=== PATIENT | male | born 1950 | race Caucasian/White ===

== ENCOUNTER 2022-06-06 18:21 | Emergency (ER) | payer MEDICARE, OTHER, SELFPAY ==
[2022-06-06] VITALS (42 sets, daily range): BP systolic 89–181; BP diastolic 44–93; PULSE 79–86; RESP 20–21; TEMP 36.7; O2SAT 98–100
[2022-06-06 18:58] LABS: Bilirubin Negative (Negative); Blood Negative (Negative); Clarity Clear (Clear); Glucose 500 mg/dL (Negative); Ketones Trace mg/dL (Negative); Leukocyte Esterase Negative (Negative); Nitrite Negative (Negative); Specific Gravity 1.025 (1.005-1.025); Urobilinogen 0.2 EU/dL (Up TO 0.2); pH 5.5 (5-8)
[2022-06-06] MEDS: MORPHine 10 MG/ML VIAL 2 MG IVP (19:22)
[2022-06-06 19:26] LABS: Abs Immature Grans 0.02 10^3/uL (0.0-0.06); Absolute Eosinophil Count 0.13 10^3/uL (0.0-0.7); Absolute Lymphocyte Count 1.29 10^3/uL (1.2-3.4); Absolute Monocyte Count 0.54 10^3/uL (0.1-0.8); Basophils % 0.9; Eosinophils % 1.1; HCT 45.9 % (40.0-50.0); HGB 14.8 g/dL (13.5-17.5); Immature Grans % 0.2; Lymphocytes % 11.1; MCH 27.5 pg (27.0-33.0); MCHC 32.2 % (32.0-36.0); MCV 85 fL (80-95); MPV 10.2 fL (8.0-11.0); Monocytes % 4.7; Platelet Count 236 10^3/uL (130-400); RBC 5.38 10^6/uL (4.36-5.78); RDW 15.4 % (11.8-14.1); RDW-SD 47.8 fL; WBC 11.59 10^3/uL (4.4-10.8)
--- NOTE | 2022-06-06 19:33 | W.ED.GENAD ---
Discharge Plan Disposition Patient Disposition: STILL A PATIENT Condition: Serious Discharge Details Clinical Impression: Aneurysm of infrarenal abdominal aorta Primary Care Provider: [facility] Provider: Wilber Flores [place] Meds and New Rx's Prescriptions: No Action metformin 1,000 mg Tablet 1,000 mg PO BID glipizide 10 mg Tablet 10 mg PO BID lisinopril 5 mg Tablet 5 mg PO DAILY aspirin 81 mg Capsule 81 mg PO DAILY gabapentin 600 mg Tablet 600 mg PO TID temazepam 30 mg Capsule 30 mg PO QHS PRN atorvastatin 20 mg Tablet 20 mg PO DAILY Jardiance 10 mg Tablet 10 mg PO DAILY Medical Decision Making This is a 72-year-old gentleman with a past medical history of diabetes, smokes 3 packs of cigarettes daily, hyperlipidemia, diabetic neuropathy, history of prostate cancer, hypertension, who unfortunately is a rather vague and poor historian presents to the ER for what he describes as left-sided back pain that radiates to his left lower quadrant. Patient tells me that he fell 2 or 3 nights ago, reports generalized weakness and loss of balance causing him to fall, denies any injury from the fall. No signs of trauma on his evaluation. He does not believe that he passed out at that time. He also states that 20 years ago he had multiple kidney stones and while this does not feel exactly like his kidney stone he certainly cannot say this is a kidney stone, denies dysuria, hematuria, nausea or vomiting. Patient reports his pain is severe. Plan is to obtain IV access, give IV morphine, obtain routine screening laboratory values and given the vagueness of his symptoms, fall a couple of days ago, flank pain, etc., will obtain CT imaging of his chest, abdomen, pelvis with IV contrast for further evaluation of his symptoms Patient reports mild relief of his symptoms with morphine CBC, CMP are unremarkable for any obvious emergent process. Mild nonspecific leukocytosis. Urinalysis with trace ketones, 500 glucose. He is receiving [address] completed and as I was reviewing the scan, visualized aortic aneurysm. Case was immediately discussed with Dr. Moore. Plan is to obtain a second IV access site, type and screen, order 4 units of blood, EKG, troponin, lactate and D-dimer. Images were immediately pushed to [facility] and in the meantime plan is to reach out to our surgical team, Dr. Calvert I spoke with Dr. Calvert at 2056, aneurysm but no obvious rupture. Moderate thrombus from the aortic arch down to the iliac. Recommend vascular consultation. Official read of CT resulted, no dissection, will hold on any blood products I spoke with vascular surgery at [facility], Dr. Skaggs. While the aneurysms do not meet criteria for surgery, given his discomfort, elevated lactate and D-dimer, he believes a vascular surgery consultation in emergent fashion is certainly reasonable. Recommends ER to ER transfer to his facility I received a call from Jennifer at the transfer center at [facility] at approximately [phone], they need to run the case past their administration as they are at capacity In the meantime patient is receiving 1 L IV fluid, given 1 mg IV Dilaudid, and repeat blood pressure was noted to be 112/56. He denies any increase of pain and denies any change of mentation. He was initially considering leaving AGAINST MEDICAL ADVICE but is agreeable to transfer and understands the seriousness of the situation. Patient typically goes to [place] during the winter and states that he could follow-up there once he arrives. He also tells me that he had 2 separate family members of a ruptured AAA. We once again discussed the seriousness of the situation and he is agreeable to observation at our facility until transfer is arranged. I received a call at 2300 from the [facility] transfer team, unfortunately they cannot accept care of the patient. Recommends calling back at 9 AM to assess bed status I then spoke with Dr. Calvert regarding the inability to adequately transfer of the patient. At this time she feels as though the patient should be at a higher level of care and recommends continuing to pursue transfer throughout tertiary care facilities in [place]. She states that as a worse case scenario if we have no transfer options then she would recommend admitting to our facility in the ICU with arterial line I spoke with Sophie at the [facility] transfer center at approximately [phone] to initiate transfer to their facility. I had the images pushed to their facility and awaiting to hear back from her vascular team This documentation was generated using [employer]ation system, please disregard any oddities of phrase or misspellings. Imaging Data Radiologic Study: Attestation: I personally reviewed and interpreted this imaging study as follows: Imaging: CT Scan Radiologist's impression: PROCEDURE INFORMATION: Exam: CT Chest With Contrast; Diagnostic Exam date and time: 06/06/2022 8:23 PM Age: 72 years old Clinical indication: Pain and injury or trauma; Blunt; Abdominal pain and other: Left sided back pain; Localized; Left-sided; Prior surgery; Surgery date: 6+ months; Surgery type: Hernia repair, prostate, renal stone; Patient HX: Left sided back pain, fall 2 days ago TECHNIQUE: Imaging protocol: Diagnostic computed tomography of the chest with contrast. 3D rendering (Not supervised by radiologist): MIP and/or 3D reconstructed images were created by the technologist. Radiation optimization: All CT scans at this facility use at least one of these dose optimization techniques: automated exposure control; mA and/or kV adjustment per patient size (includes targeted exams where dose is matched to clinical indication); or iterative reconstruction. Contrast material: OMNIPAQUE 350; Contrast volume: 100 ml; Contrast route: INTRAVENOUS (IV); COMPARISON: No relevant prior studies available. FINDINGS: Lungs: Focal scarring and atelectasis present with bronchiectasis within the right upper lobe of the lung. There are mild bronchiectatic changes seen within the right left lower lobes of the lung with mild peribronchial thickening. Minimal atelectatic changes are present. Pleural spaces: No pneumothorax. No pleural effusion. Heart: There is severe atherosclerotic calcification of the coronary arteries. Lymph nodes: There is no evidence of lymphadenopathy. Vasculature: The aorta demonstrates moderate atherosclerotic calcification. Moderate atherosclerosis present at the origins of the great vessels. Pulmonary artery is normal in caliber. There is no evidence of filling defects within the pulmonary arterial circulation to suggest pulmonary embolism. This is not a dedicated CT angiogram.Diaphragm: A small hiatal hernia is present. Intraperitoneal space: Please see CT of the abdomen and pelvis. Bones/joints: Moderate degenerative changes of the thoracic spine. There are diffuse enthesopathic changes consistent with benign diffuse idiopathic skeletal hyperostosis (DISH). Soft tissues: The extrathoracic soft tissues are unremarkable IMPRESSION: 1. There is no evidence of filling defects within the pulmonary arterial circulation to suggest pulmonary embolism. 2. No evidence of acute thoracic trauma. PROCEDURE INFORMATION: Exam: CT Abdomen And Pelvis With Contrast Exam date and time: 06/06/2022 8:23 PM Age: 72 years old Clinical indication: Pain and injury or trauma; Blunt; Abdominal pain and other: Left sided back pain; Localized; Left-sided; Prior surgery; Surgery date: 6+ months; Surgery type: Hernia repair, prostate, renal stone; Patient HX: Left sided back pain, fall 2 days ago TECHNIQUE: Imaging protocol: Computed tomography of the abdomen and pelvis with contrast. 3D rendering (Not supervised by radiologist): MIP and/or 3D reconstructed images were created by the technologist. Radiation optimization: All CT scans at this facility use at least one of these dose optimization techniques: automated exposure control; mA and/or kV adjustment per patient size (includes targeted exams where dose is matched to clinical indication); or iterative reconstruction. Contrast material: OMNIPAQUE 350; Contrast volume: 100 ml; Contrast route: INTRAVENOUS (IV); COMPARISON: No relevant prior studies available. FINDINGS: Lungs: The lungs are normal. There is no evidence of focal pulmonary consolidation. Pleural spaces: There is no evidence of pneumothorax. There are no pleural effusions present. Heart: The cardiac structures are normal. Liver: There are no focal liver lesions present. There is no evidence of intrahepatic or extrahepatic biliary ductal dilation. No evidence of laceration of the liver. There is a diffuse decrease in hepatic parenchymal density, consistent with mild fatty infiltration. Gallbladder and bile ducts: There are calcified gallstones present within the gallbladder lumen. There is no wall thickening or pericholecystic fluid. Findings consistant with cholelitiasis without cholecystitis.Pancreas: The pancreas is normal. Spleen: The spleen is normal. No evidence of laceration of the spleen. Adrenal glands: The adrenal glands are normal. Kidneys and ureters: The kidneys are normal. No evidence of renal laceration. Stomach and bowel: No evidence of duodenal hematoma. There is no evidence of intestinal obstruction. No diverticulosis is present. Appendix: A normal appendix is identified. There is no evidence of distention or periappendiceal inflammation to suggest appendicitis. Intraperitoneal space: No evidence of free fluid within the abdomen to suggest hemoperitoneum. There is no free intraperitoneal air. There are no soft tissue masses or fluid collections. No evidence of retroperitoneal hematoma. Vasculature: The aorta shows moderate to severe atherosclerosis with mild copious amount of mural thrombus present. There is a fusiform infrarenal abdominal aortic aneurysm measuring approximately 4.1 cm at its widest diameter. 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 Moderate atherosclerosis of the iliac and femoral arterial systems present. There is ectasia and moderate atherosclerosis of the left common iliac artery measuring 16 mm. No evidence of extravasation of contrast to suggest major vascular injury. The peripheral arterial vascular system visualized is otherwise unremarkable. The portal venous system visualized is unremarkable. The venous system visualized is unremarkable. Lymph nodes: There is no evidence of lymphadenopathy. Urinary bladder: The bladder is normal. Reproductive: The prostate is unremarkable for age. 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 Bones/joints: The lumbar spine demonstrates moderate degenerative changes. The lumbar spine demonstrates moderate degenerative changes. The skeletal structures and associated soft tissues show no evidence of fracture or other acute processes. Soft tissues: There is a nonobstructing left inguinal hernia containing fat and possibly a small amount of mesentery. The extra-abdominal soft tissues are normal. IMPRESSION: 1. No evidence of acute intra-abdominal trauma. 2. Findings consistant with cholelitiasis without cholecystitis. 3. Infrarenal abdominal aortic aneurysm measuring 4.1 cm. No evidence of leakage or rupture. Thank you for allowing us to participate in the care of your patient. Lab Data Lab results reviewed: Yes I reviewed the patient's lab results. Labs: Laboratory Tests Range/Units 06/06/22 06/06/22 06/06/22 18:54 19:00 19:00 WBC (4.4-10.8) 10^3/uL 11.59 H RBC (4.36-5.78) 10^6/uL 5.38 Hgb (13.5-17.5) g/dL 14.8 Hct (40.0-50.0) % 45.9 MCV (80-95) fL 85 MCH (27.0-33.0) pg 27.5 MCHC (32.0-36.0) % 32.2 RDW (11.8-14.1) % 15.4 H Plt Count (130-400) 10^3/uL 236 MPV (8.0-11.0) fL 10.2 Immature Gran % 0.2 Neutrophils % 82.0 Lymphocytes % 11.1 Monocytes % 4.7 Eosinophils % 1.1 Basophils % 0.9 Nucleated RBC % (0.0-0.3) % 0.0 Absolute Neutrophils (1.2-6.7) 10^3/uL 9.50 H Absolute Lymphocytes (1.2-3.4) 10^3/uL 1.29 Absolute Monocytes (0.1-0.8) 10^3/uL 0.54 Absolute Eosinophils (0.0-0.7) 10^3/uL 0.13 Absolute Basophils (0.0-0.2) 10^3/uL 0.10 D-Dimer (<500) ng/mlFEU VBG Lactate (0.6-1.4) mmol/L Sodium (136-145) mmol/L 139 Potassium (3.5-5.1) mmol/L 4.4 Chloride (98-107) mmol/L 103 Carbon Dioxide (21.0-32.0) mmol/L 25.2 Anion Gap (3-11) mmol/L 10.8 BUN (7-18) mg/dL 16 Creatinine (0.70-1.30) mg/dL 1.3 Est GFR (CKD-EPI 2020) (mL/min/1.73m2) 58.73 Glucose (74-106) mg/dL 170 H Calcium (8.5-10.1) mg/dL 9.1 Total Bilirubin (0.2-1.0) mg/dL 0.4 AST (15-37) U/L 13 L ALT (16-63) U/L 13 L Alkaline Phosphatase (46-116) U/L 66 Troponin I (<or=60) ng/L Total Protein (6.4-8.2) g/dL 7.6 Albumin (3.4-5.0) g/dL 3.7 Lipase (73-393) U/L 127 Urine Color (Yellow) Yellow Urine Clarity (Clear) Clear Urine pH (5-8) 5.5 Ur Specific [place] (1.005-1.025) 1.025 Urine Protein (Negative) mg/dL Negative Urine Ketones (Negative) mg/dL Trace H Urine Blood (Negative) Negative Urine Nitrite (Negative) Negative Urine Bilirubin (Negative) Negative Urine Urobilinogen (Up TO 0.2) EU/dL 0.2 Ur Leukocyte Esterase (Negative) Negative Urine Glucose (Negative) mg/dL 500 H COVID-19 Source SARS-CoV-2 (PCR) (Negative) Crossmatch Range/Units 06/06/22 06/06/22 06/06/22 21:11 21:20 21:20 WBC (4.4-10.8) 10^3/uL RBC (4.36-5.78) 10^6/uL Hgb (13.5-17.5) g/dL Hct (40.0-50.0) % MCV (80-95) fL MCH (27.0-33.0) pg MCHC (32.0-36.0) % RDW (11.8-14.1) % Plt Count (130-400) 10^3/uL MPV (8.0-11.0) fL Immature Gran % Neutrophils % Lymphocytes % Monocytes % Eosinophils % Basophils % Nucleated RBC % (0.0-0.3) % Absolute Neutrophils (1.2-6.7) 10^3/uL Absolute Lymphocytes (1.2-3.4) 10^3/uL Absolute Monocytes (0.1-0.8) 10^3/uL Absolute Eosinophils (0.0-0.7) 10^3/uL Absolute Basophils (0.0-0.2) 10^3/uL D-Dimer (<500) ng/mlFEU VBG Lactate (0.6-1.4) mmol/L 3.2 H* Sodium (136-145) mmol/L Potassium (3.5-5.1) mmol/L Chloride (98-107) mmol/L Carbon Dioxide (21.0-32.0) mmol/L Anion Gap (3-11) mmol/L BUN (7-18) mg/dL Creatinine (0.70-1.30) mg/dL Est GFR (CKD-EPI 2020) (mL/min/1.73m2) Glucose (74-106) mg/dL Calcium (8.5-10.1) mg/dL Total Bilirubin (0.2-1.0) mg/dL AST (15-37) U/L ALT (16-63) U/L Alkaline Phosphatase (46-116) U/L Troponin I (<or=60) ng/L < 50 Total Protein (6.4-8.2) g/dL Albumin (3.4-5.0) g/dL Lipase (73-393) U/L Urine Color (Yellow) Urine Clarity (Clear) Urine pH (5-8) Ur Specific [place] (1.005-1.025) Urine Protein (Negative) mg/dL Urine Ketones (Negative) mg/dL Urine Blood (Negative) Urine Nitrite (Negative) Urine Bilirubin (Negative) Urine Urobilinogen (Up TO 0.2) EU/dL Ur Leukocyte Esterase (Negative) Urine Glucose (Negative) mg/dL COVID-19 Source SARS-CoV-2 (PCR) (Negative) Crossmatch See Detail Range/Units 06/06/22 06/06/22 21:20 21:37 WBC (4.4-10.8) 10^3/uL RBC (4.36-5.78) 10^6/uL Hgb (13.5-17.5) g/dL Hct (40.0-50.0) % MCV (80-95) fL MCH (27.0-33.0) pg MCHC (32.0-36.0) % RDW (11.8-14.1) % Plt Count (130-400) 10^3/uL MPV (8.0-11.0) fL Immature Gran % Neutrophils % Lymphocytes % Monocytes % Eosinophils % Basophils % Nucleated RBC % (0.0-0.3) % Absolute Neutrophils (1.2-6.7) 10^3/uL Absolute Lymphocytes (1.2-3.4) 10^3/uL Absolute Monocytes (0.1-0.8) 10^3/uL Absolute Eosinophils (0.0-0.7) 10^3/uL Absolute Basophils (0.0-0.2) 10^3/uL D-Dimer (<500) ng/mlFEU 959 H VBG Lactate (0.6-1.4) mmol/L Sodium (136-145) mmol/L Potassium (3.5-5.1) mmol/L Chloride (98-107) mmol/L Carbon Dioxide (21.0-32.0) mmol/L Anion Gap (3-11) mmol/L BUN (7-18) mg/dL Creatinine (0.70-1.30) mg/dL Est GFR (CKD-EPI 2020) (mL/min/1.73m2) Glucose (74-106) mg/dL Calcium (8.5-10.1) mg/dL Total Bilirubin (0.2-1.0) mg/dL AST (15-37) U/L ALT (16-63) U/L Alkaline Phosphatase (46-116) U/L Troponin I (<or=60) ng/L Total Protein (6.4-8.2) g/dL Albumin (3.4-5.0) g/dL Lipase (73-393) U/L Urine Color (Yellow) Urine Clarity (Clear) Urine pH (5-8) Ur Specific [place] (1.005-1.025) Urine Protein (Negative) mg/dL Urine Ketones (Negative) mg/dL Urine Blood (Negative) Urine Nitrite (Negative) Urine Bilirubin (Negative) Urine Urobilinogen (Up TO 0.2) EU/dL Ur Leukocyte Esterase (Negative) Urine Glucose (Negative) mg/dL COVID-19 Source Nasal/Nares SARS-CoV-2 (PCR) (Negative) Negative Crossmatch ECG Data Attestation: I personally reviewed and interpreted this ECG (s) as follows: Interpretation: Sinus rhythm, ventricular rate of 79, no STEMI HPI General Mode of arrival: ambulatory. Date/Time Provider Initiated Documentation: 06/06/22 18:46. Limitations to Documentation: no limitations. Information obtained by: patient and family. History of Present Illness 72 year old M presents to the emergency department with the chief complaint of Back pain, described as severe, with intensity rated at 9. Quality is described as stabbing, and is localized to the back and left. Patient abdomen (LLQ). Patient started experiencing this day(s) (1) and it has been constant. No relieving factors improve symptom(s), No exacerbating factors reported . Patient notes other (fall 2 days ago, no injury). Patient did receive the following treatments prior to arrival, none Related Data Home Medications Medication Instructions Recorded Confirmed aspirin 81 mg capsule 81 mg PO DAILY 06/06/22 06/06/22 atorvastatin 20 mg tablet 20 mg PO DAILY 06/06/22 06/06/22 empagliflozin 10 mg tablet 10 mg PO DAILY 06/06/22 06/06/22 (Jardiance) gabapentin 600 mg tablet 600 mg PO TID 06/06/22 06/06/22 glipizide 10 mg tablet 10 mg PO BID 06/06/22 06/06/22 lisinopril 5 mg tablet 5 mg PO DAILY 06/06/22 06/06/22 metformin 1,000 mg tablet 1,000 mg PO BID 06/06/22 06/06/22 temazepam 30 mg capsule 30 mg PO QHS PRN 06/06/22 06/06/22 General Stated Complaint: Abd Prob MO: 3 Review of Systems Constitutional Constitutional: Denies fever(s), Denies headache(s) and Reports weakness (Generalized) Eyes Eyes: Denies change in vision ENT Ears, Nose, Mouth, and Throat: Denies headache(s) and Denies neck pain Cardiovascular Cardiovascular: Denies chest pain and Denies dyspnea Respiratory Respiratory: Denies cough and Denies dyspnea Gastrointestinal Gastrointestinal: Reports abdominal pain, Denies nausea and Denies vomiting Genitourinary Genitourinary: Denies hematuria and Denies dysuria Musculoskeletal Musculoskeletal: Reports back pain, Denies neck pain and Reports numbness (Baseline neuropathy) Integumentary/Breasts Skin/Breast: Denies rash Neurologic Neurologic: Denies headache(s), Reports numbness (Baseline neuropathy) and Reports weakness (Generalized) Hematologic/Lymphatic Hematologic/Lymphatic: Denies easy bleeding and Denies easy bruising PFSH All Active Problems (Updated 06/06/22 @ 22:42 by ROSELINE Rainey) Aneurysm of infrarenal abdominal aorta (Acute) Social History Smoking/Tobacco Use Status: Current every day Tobacco Type: cigarettes Smoking risk assessment performed?: Yes Alcohol Intake: current Substance use type: does not use Do you feel safe at home: Yes Do you feel safe in your relationship?: Yes Exam Const General: cooperative, comfortable, no acute distress and ill appearing chronically Orientation: alert, awake and oriented x3 HENMT Head: normal to inspection, normocephalic and atraumatic Face and sinus: normal facial exam Mouth: moist mucous membranes abnormal (Slightly dry) Eyes General: appearance normal, both eyes and all related structures Conjunctivae: conjunctivae normal Neck Neck: normal visual inspection, full ROM, no meningeal signs, trachea midline and supple Resp Effort & Inspection: normal respiratory effort and able to speak in complete sentences Auscultation: diminished lung sounds bilaterally in the lower lung dodd Cardio Rate: regular rate Rhythm: regular rhythm GI Inspection: normal to inspection Palpation: not firm, no guarding, no pulsatile masses and tender in the LLQ; not at McBurney's point, Thompson's sign negative and with no rebound tenderness Auscultation: normal bowel sounds Back/Spine/Pelvis Back: no CVA tenderness and back tenderness Other: There is occasionally left upper lumbar reproducible discomfort to palpation but at other times palpation of the same location does not elicit any discomfort. There is no midline point tenderness, erythema, ecchymosis. No crepitus. Skin is intact. Skin General skin exam: no rashes or lesions noted Neuro General: patient alert, patient awake, patient oriented x3, moves all extremities and no focal motor deficits Cognition: normal cognition Speech: speech normal Gait: normal gait Motor: muscle tone normal throughout Sensory Exam: no sensory deficits noted Extrem General: normal to inspection, full ROM, capillary refill normal, no pedal edema and no calf tenderness Psych Appearance: grossly normal Mental Status: mental status grossly normal Course Vital Signs Vital signs: Vital Signs Temperature 36.7 C 06/06/22 18:25 Pulse 79 06/06/22 18:25 Respiratory Rate 20 06/06/22 18:25 Blood Pressure 167/59 H 06/06/22 18:25 Pulse Oximetry 98 06/06/22 18:25 Temperature 36.7 C 06/06/22 18:25 Temperature Source Skin 06/06/22 18:25 Pulse 79 06/06/22 18:25 Respiratory Rate 20 06/06/22 18:25 Blood Pressure 167/59 H 06/06/22 18:25 Blood Pressure Position Sitting 06/06/22 18:25 Pulse Oximetry 98 06/06/22 18:25 Oxygen Delivery Method Room Air 06/06/22 18:25 Oxygen Flow Rate 0 06/06/22 18:25 Pain Level 10 06/06/22 19:22 Lab/Test Results Lab/Test Results: Laboratory Tests Range/Units 06/06/22 06/06/22 18:54 19:00 WBC (4.4-10.8) 10^3/uL 11.59 H RBC (4.36-5.78) 10^6/uL 5.38 Hgb (13.5-17.5) g/dL 14.8 Hct (40.0-50.0) % 45.9 MCV (80-95) fL 85 MCH (27.0-33.0) pg 27.5 MCHC (32.0-36.0) % 32.2 RDW (11.8-14.1) % 15.4 H Plt Count (130-400) 10^3/uL 236 MPV (8.0-11.0) fL 10.2 Immature Gran % 0.2 Neutrophils % 82.0 Lymphocytes % 11.1 Monocytes % 4.7 Eosinophils % 1.1 Basophils % 0.9 Nucleated RBC % (0.0-0.3) % 0.0 Absolute Neutrophils (1.2-6.7) 10^3/uL 9.50 H Absolute Lymphocytes (1.2-3.4) 10^3/uL 1.29 Absolute Monocytes (0.1-0.8) 10^3/uL 0.54 Absolute Eosinophils (0.0-0.7) 10^3/uL 0.13 Absolute Basophils (0.0-0.2) 10^3/uL 0.10 Urine Color (Yellow) Yellow Urine Clarity (Clear) Clear Urine pH (5-8) 5.5 Ur Specific [place] (1.005-1.025) 1.025 Urine Protein (Negative) mg/dL Negative Urine Ketones (Negative) mg/dL Trace H Urine Blood (Negative) Negative Urine Nitrite (Negative) Negative Urine Bilirubin (Negative) Negative Urine Urobilinogen (Up TO 0.2) EU/dL 0.2 Ur Leukocyte Esterase (Negative) Negative Urine Glucose (Negative) mg/dL 500 H Critical Care Time Critical Care Time Critical Care Time: Yes Total Critical Care Time: 45 Attestation: Upon my evaluation, this patient had a high probability of clinically significant, life-threatening deterioration due to their current medical conditions, which required my direct attention, intervention, and personal management. I have personally provided greater than 30 minutes of critical care time exclusive of the time spend on separately billable procedures. Time includes obtaining a history, examining the patient, pulse oximetry, review of laboratory data, radiology results, discussion with consultants, arranging urgent treatment with development of a management plan, evaluation of patient's response to treatment, and monitoring for potential decompensation. Interventions were performed as documented above.
[2022-06-06 19:41] LABS: ALT 13 U/L (16-63); AST 13 U/L (15-37); Albumin 3.7 g/dL (3.4-5.0); Alkaline Phosphatase 66 U/L (46-116); Anion Gap 10.8 mmol/L (3-11); BUN 16 mg/dL (7-18); Bilirubin, Total 0.4 mg/dL (0.2-1.0); CO2 25.2 mmol/L (21.0-32.0); CREATININE 1.3 mg/dL (0.70-1.30); Calcium 9.1 mg/dL (8.5-10.1); Chloride 103 mmol/L (98-107); Estimated GFR 58.73 (mL/min/1.73m2); Glucose 170 mg/dL (74-106); Lipase 127 U/L (73-393); Potassium 4.4 mmol/L (3.5-5.1); Sodium 139 mmol/L (136-145); Total Protein 7.6 g/dL (6.4-8.2)
--- NOTE | 2022-06-06 19:45 | DI.CT_ITS ---
Exam(s) CT CHEST/ABD/PEL W EXAM: CT CHEST/ABD/PEL W CLINICAL HISTORY: L flank pain, fall 2 days ago, hx of renal stone. TECHNIQUE: Imaging Protocol: Axial computed tomography images with coronal and sagittal reformatted images were created and reviewed CONTRAST MATERIAL: Intravenous: Omnipaque 350 Contrast volume:100 ml Oral: no COMPARISON: No exams were available for comparison FINDINGS: CHEST: Tracheobronchial tree: Patent where visualized. Mediastinum and Tammy: No dominant adenopathy or fluid collection. Pulmonary parenchyma: Scarring right upper lobe and mild adjacent traction bronchiectasis.. No conso lidation or dominant measurable mass. Pleura: No effusion or pneumothorax. Lymph nodes: Within normal limits. Aorta: Thoracic portion non-dilated. Atherosclerotic changes. Heart: Mildly enlarged. Coronary artery calcifications. Bones: Flowing osteophytes.. No lytic or blastic lesions. ABDOMEN: Liver: Normal density. No measurable mass. Gallbladder and biliary tract: Gallstone. No biliary dilation. Pancreas: Normal density, no abnormal calcifications or inflammatory process. Spleen: Normal. Kidneys: Normal size, contour and axis. No radiodense stones or obstructive uropathy. No masses seen. Adrenal glands: No masses seen. Aorta: Atherosclerotic changes. Infrarenal aneurysm with mural thrombus measuring 4.1 cm transverse. There is dilatation of the left iliac artery to 1.6 cm. Lymph nodes: Within normal limits. Soft tissues: Unremarkable. Stomach and small bowel: Diverticula of the descending duodenum. PELVIS: Bladder: Symmetric distention, no gross wall thickening. Bowel: No obstruction or bowel wall thickening. Peritoneal cavity: No ascites, collection or mesenteric inflammatory response. Bones: There are prominent endplate osteophytes. No evidence of fracture. Disc spaces are maintaine d. Facet degenerative changes are also present. There is left-sided spondylolysis at L5 which appea rs old. No spondylolisthesis. Degenerative changes of both hips. 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 Soft tissues: Small fatty containing left inguinal hernia. IMPRESSION: No acute abnormality in the chest abdomen or pelvis.. 4.1 centimeter infrarenal abdominal aortic aneurysm. RADIATION DOSE DELIVERED: 1,110.36mGy.cm Total DLP DATA REPOSITORY: All CT scans at this facility are submitted to the National Radiology Data Registry (NRDR) Dose Index Registry (DIR) with the [employer] ([employer]). RADIATION OPTIMIZATION: All CT scans at this facility use at least one of these dose optimization te chniques: automated exposure control; mA and/or kV adjustment per patient size (includes targeted exa ms where dose is matched to clinical indication); or iterative reconstruction.
--- NOTE | 2022-06-06 20:45 | RT.EKG_ITS ---
APPROVED REPORT Exam: Resting ECG Reason for Exam: L flank pain Patient Location: E HR:79 bpm ECG Measurements Heart Rate 79 AXIS AL 192 P 22 QRSd 86 QRS -23 QT 386 T 32 QTc 444 Conclusion Sinus rhythm...normal P axis, V-rate 60- 99. Sinus. No STEMI. I have reviewed and interpreted ECG and agree with software generated interpretation.
--- NOTE | 2022-06-06 20:59 | DI.VRAD_ITS ---
PROCEDURE INFORMATION: Exam: CT Chest With Contrast; Diagnostic Exam date and time: 06/06/2022 8:23 PM Age: 72 years old Clinical indication: Pain and injury or trauma; Blunt; Abdominal pain and other: Left sided back pain; Localized; Left-sided; Prior surgery; Surgery date: 6+ months; Surgery type: Hernia repair, prostate, renal stone; Patient HX: Left sided back pain, fall 2 days ago TECHNIQUE: Imaging protocol: Diagnostic computed tomography of the chest with contrast. 3D rendering (Not supervised by radiologist): MIP and/or 3D reconstructed images were created by the technologist. Radiation optimization: All CT scans at this facility use at least one of these dose optimization techniques: automated exposure control; mA and/or kV adjustment per patient size (includes targeted exams where dose is matched to clinical indication); or iterative reconstruction. Contrast material: OMNIPAQUE 350; Contrast volume: 100 ml; Contrast route: INTRAVENOUS (IV); COMPARISON: No relevant prior studies available. FINDINGS: Lungs: Focal scarring and atelectasis present with bronchiectasis within the right upper lobe of the lung. There are mild bronchiectatic changes seen within the right left lower lobes of the lung with mild peribronchial thickening. Minimal atelectatic changes are present. Pleural spaces: No pneumothorax. No pleural effusion. Heart: There is severe atherosclerotic calcification of the coronary arteries. Lymph nodes: There is no evidence of lymphadenopathy. Vasculature: The aorta demonstrates moderate atherosclerotic calcification. Moderate atherosclerosis present at the origins of the great vessels. Pulmonary artery is normal in caliber. There is no evidence of filling defects within the pulmonary arterial circulation to suggest pulmonary embolism. This is not a dedicated CT angiogram. Diaphragm: A small hiatal hernia is present. Intraperitoneal space: Please see CT of the abdomen and pelvis. Bones/joints: Moderate degenerative changes of the thoracic spine. There are diffuse enthesopathic changes consistent with benign diffuse idiopathic skeletal hyperostosis (DISH). Soft tissues: The extrathoracic soft tissues are unremarkable IMPRESSION: 1. There is no evidence of filling defects within the pulmonary arterial circulation to suggest pulmonary embolism. 2. No evidence of acute thoracic trauma. PROCEDURE INFORMATION: Exam: CT Abdomen And Pelvis With Contrast Exam date and time: 06/06/2022 8:23 PM Age: 72 years old Clinical indication: Pain and injury or trauma; Blunt; Abdominal pain and other: Left sided back pain; Localized; Left-sided; Prior surgery; Surgery date: 6+ months; Surgery type: Hernia repair, prostate, renal stone; Patient HX: Left sided back pain, fall 2 days ago TECHNIQUE: Imaging protocol: Computed tomography of the abdomen and pelvis with contrast. 3D rendering (Not supervised by radiologist): MIP and/or 3D reconstructed images were created by the technologist. Radiation optimization: All CT scans at this facility use at least one of these dose optimization techniques: automated exposure control; mA and/or kV adjustment per patient size (includes targeted exams where dose is matched to clinical indication); or iterative reconstruction. Contrast material: OMNIPAQUE 350; Contrast volume: 100 ml; Contrast route: INTRAVENOUS (IV); COMPARISON: No relevant prior studies available. FINDINGS: Lungs: The lungs are normal. There is no evidence of focal pulmonary consolidation. Pleural spaces: There is no evidence of pneumothorax. There are no pleural effusions present. Heart: The cardiac structures are normal. Liver: There are no focal liver lesions present. There is no evidence of intrahepatic or extrahepatic biliary ductal dilation. No evidence of laceration of the liver. There is a diffuse decrease in hepatic parenchymal density, consistent with mild fatty infiltration. Gallbladder and bile ducts: There are calcified gallstones present within the gallbladder lumen. There is no wall thickening or pericholecystic fluid. Findings consistant with cholelitiasis without cholecystitis. Pancreas: The pancreas is normal. Spleen: The spleen is normal. No evidence of laceration of the spleen. Adrenal glands: The adrenal glands are normal. Kidneys and ureters: The kidneys are normal. No evidence of renal laceration. Stomach and bowel: No evidence of duodenal hematoma. There is no evidence of intestinal obstruction. No diverticulosis is present. Appendix: A normal appendix is identified. There is no evidence of distention or periappendiceal inflammation to suggest appendicitis. Intraperitoneal space: No evidence of free fluid within the abdomen to suggest hemoperitoneum. There is no free intraperitoneal air. There are no soft tissue masses or fluid collections. No evidence of retroperitoneal hematoma. Vasculature: The aorta shows moderate to severe atherosclerosis with mild copious amount of mural thrombus present. There is a fusiform infrarenal abdominal aortic aneurysm measuring approximately 4.1 cm at its widest diameter. 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 Moderate atherosclerosis of the iliac and femoral arterial systems present. There is ectasia and moderate atherosclerosis of the left common iliac artery measuring 16 mm. No evidence of extravasation of contrast to suggest major vascular injury. The peripheral arterial vascular system visualized is otherwise unremarkable. The portal venous system visualized is unremarkable. The venous system visualized is unremarkable. Lymph nodes: There is no evidence of lymphadenopathy. Urinary bladder: The bladder is normal. Reproductive: The prostate is unremarkable for age. 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 Bones/joints: The lumbar spine demonstrates moderate degenerative changes. The lumbar spine demonstrates moderate degenerative changes. The skeletal structures and associated soft tissues show no evidence of fracture or other acute processes. Soft tissues: There is a nonobstructing left inguinal hernia containing fat and possibly a small amount of mesentery. The extra-abdominal soft tissues are normal. IMPRESSION: 1. No evidence of acute intra-abdominal trauma. 2. Findings consistant with cholelitiasis without cholecystitis. 3. Infrarenal abdominal aortic aneurysm measuring 4.1 cm. No evidence of leakage or rupture. Dictated and Authenticated by: Moises Novak MD. Ordering:ADRIEN Merino MD
[2022-06-06 21:30] LABS: Lactate 3.2 mmol/L (0.6-1.4)
[2022-06-06 21:40] LABS: Source Nasal/Nares
[2022-06-06 21:43] LABS: Troponin I < 50 ng/L (<or=60)
[2022-06-06 22:18] LABS: D-Dimer 959 ng/mlFEU (<500)
[2022-06-06 22:28] LABS: COVID-19 PCR Negative (Negative)
[2022-06-07] VITALS: BP 87/44; PULSE 74; RESP 16; O2SAT 98
[2022-06-07] MEDS: Lactated Ringers 1,000 ML 1000 ML IV ×2 (00:08)
[2022-06-07 00:09] VITALS: BP 98/52; PULSE 75; RESP 18; O2SAT 98
[2022-06-07 00:15] VITALS: BP 107/52; PULSE 74; RESP 21; O2SAT 98
[2022-06-07 00:30] VITALS: BP 102/54; PULSE 74; O2SAT 98
--- NOTE | 2022-06-07 00:38 | ED.PROG_ITS ---
Date of service: 06/06/22 Time of Service: 23:30 Medical Decision Making 2330 -- Please see ROSELINE Flores's note for initial presentation, exam and plan. Case endorsed to follow-up with [facility] regarding recommendations infrarenal abdominal aortic aneurysm. 0030 -- patient has been hypotensive which started 30 minutes after Dilaudid. Systolic blood pressure as low as 80s. This appears to be fluid responsive. His lactate was 3.2, will repeat lactate after 2 L of fluid. Patient has normal heart rate and denies any abdominal pain. He appears comfortable. Patient's is at bedside and states that patient had a syncopal episode in the bathroom and fell striking the left side of his back on the bathtub. Pt has tenderness to palpation of the L side of his mid back without evidence of trauma. Moving all extremities. No focal deficits. Abdomen soft and nontender. 0045 -- Case discussed with [facility] vascular surgery on-call --based on size of aneurysm and no evidence of leakage or rupture on CT, no indication for transfer for surgery. Patient can follow-up with vascular surgery as an outpatient. BP improving. 102/54. Suspect his AAA is incidental and not the cause of his back pain. Suspect his pain is musculoskeletal related to blunt injury or strain. Repeat lactate only down trended to 2:03 liters of IV fluids. His blood pressure remains soft but I suspect it is secondary to dehydration and dilaudid. Will admit for continued monitoring overnight, IV fluid hydration and plan for repeat lactate. 0110 --Case discussed with hospitalist Dr. Edwards who evaluated patient at bedside with plan for admission. Patient is stating he feels better and would like to go home. His blood pressure has improved and is now 113/74. Discussed with patient that we would recommend he stay overnight for continued monitoring with plan for repeat lactate and to continue to monitor his blood pressure and pain. The risk of and disability due to missed or delayed diagnoses explained and patient understands and demonstrates capacity to make decisions. Patient placed on care management's list to help arrange for a follow-up appointment with [facility] vascular surgery for reevaluation and to discuss possible surgical options for his AAA. Advised on the importance of quitting smoking and maintaining normal glucose. Advised to follow up with the primary care doctor for re-evaluation. Usual and customary return precautions given prior to leaving. AMA form signed. Medical Records Medical records reviewed: Yes I reviewed the patient's medical records. Imaging Data Radiologic Study: Radiologist's impression: CT Chest With Contrast; Diagnostic Exam date and time: 06/06/2022 8:23 PM Age: 72 years old Clinical indication: Pain and injury or trauma; Blunt; Abdominal pain and other: Left sided back pain; Localized; Left-sided; Prior surgery; Surgery date: 6+ months; Surgery type: Hernia repair, prostate, renal stone; Patient HX: Left sided back pain, fall 2 days ago TECHNIQUE: Imaging protocol: Diagnostic computed tomography of the chest with contrast. 3D rendering (Not supervised by radiologist): MIP and/or 3D reconstructed images were created by the technologist. Radiation optimization: All CT scans at this facility use at least one of these dose optimization techniques: automated exposure control; mA and/or kV adjustment per patient size (includes targeted exams where dose is matched to clinical indication); or iterative reconstruction. Contrast material: OMNIPAQUE 350; Contrast volume: 100 ml; Contrast route: INTRAVENOUS (IV);? COMPARISON: No relevant prior studies available. FINDINGS: Lungs: Focal scarring and atelectasis present with bronchiectasis within the right upper lobe of the lung. There are mild bronchiectatic changes seen within the right left lower lobes of the lung with mild peribronchial thickening. Minimal atelectatic changes are present. Pleural spaces: No pneumothorax. No pleural effusion. Heart: There is severe atherosclerotic calcification of the coronary arteries. Lymph nodes: There is no evidence of lymphadenopathy. Vasculature: The aorta demonstrates moderate atherosclerotic calcification. Moderate atherosclerosis present at the origins of the great vessels. Pulmonary artery is normal in caliber. There is no evidence of filling defects within the pulmonary arterial circulation to suggest pulmonary embolism. This is not a dedicated CT angiogram. Diaphragm: A small hiatal hernia is present. Intraperitoneal space: Please see CT of the abdomen and pelvis. Bones/joints: Moderate degenerative changes of the thoracic spine. There are diffuse enthesopathic changes consistent with benign diffuse idiopathic skeletal hyperostosis (DISH). Soft tissues: The extrathoracic soft tissues are unremarkable IMPRESSION: 1. There is no evidence of filling defects within the pulmonary arterial circulation to suggest pulmonary embolism. 2. No evidence of acute thoracic trauma. CT Abdomen And Pelvis With Contrast Exam date and time: 06/06/2022 8:23 PM Age: 72 years old Clinical indication: Pain and injury or trauma; Blunt; Abdominal pain and other: Left sided back pain; Localized; Left-sided; Prior surgery; Surgery date: 6+ months; Surgery type: Hernia repair, prostate, renal stone; Patient HX: Left sided back pain, fall 2 days ago TECHNIQUE: Imaging protocol: Computed tomography of the abdomen and pelvis with contrast. 3D rendering (Not supervised by radiologist): MIP and/or 3D reconstructed images were created by the technologist. Radiation optimization: All CT scans at this facility use at least one of these dose optimization techniques: automated exposure control; mA and/or kV adjustment per patient size (includes targeted exams where dose is matched to clinical indication); or iterative reconstruction. Contrast material: OMNIPAQUE 350; Contrast volume: 100 ml; Contrast route: INTRAVENOUS (IV);? COMPARISON: No relevant prior studies available. FINDINGS: Lungs: The lungs are normal. There is no evidence of focal pulmonary consolidation. Pleural spaces: There is no evidence of pneumothorax. There are no pleural effusions present. Heart: The cardiac structures are normal. Liver: There are no focal liver lesions present. There is no evidence of intrahepatic or extrahepatic biliary ductal dilation. No evidence of laceration of the liver. There is a diffuse decrease in hepatic parenchymal density, consistent with mild fatty infiltration. Gallbladder and bile ducts: There are calcified gallstones present within the gallbladder lumen. There is no wall thickening or pericholecystic fluid. Findings consistant with cholelitiasis without cholecystitis. Pancreas: The pancreas is normal. Spleen: The spleen is normal. No evidence of laceration of the spleen. Adrenal glands: The adrenal glands are normal. Kidneys and ureters: The kidneys are normal. No evidence of renal laceration. Stomach and bowel: No evidence of duodenal hematoma. There is no evidence of intestinal obstruction. No diverticulosis is present. Appendix: A normal appendix is identified. There is no evidence of distention or periappendiceal inflammation to suggest appendicitis. Intraperitoneal space: No evidence of free fluid within the abdomen to suggest hemoperitoneum. There is no free intraperitoneal air. There are no soft tissue masses or fluid collections. No evidence of retroperitoneal hematoma. Vasculature: The aorta shows moderate to severe atherosclerosis with mild copious amount of mural thrombus present. There is a fusiform infrarenal abdominal aortic aneurysm measuring approximately 4.1 cm at its widest diameter. 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 Moderate atherosclerosis of the iliac and femoral arterial systems present. There is ectasia and moderate atherosclerosis of the left common iliac artery measuring 16 mm. No evidence of extravasation of contrast to suggest major vascular injury. The peripheral arterial vascular system visualized is otherwise unremarkable. The portal venous system visualized is unremarkable. The venous system visualized is unremarkable. Lymph nodes: There is no evidence of lymphadenopathy. Urinary bladder: The bladder is normal. Reproductive: The prostate is unremarkable for age. 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 Bones/joints: The lumbar spine demonstrates moderate degenerative changes. The lumbar spine demonstrates moderate degenerative changes. The skeletal structures and associated soft tissues show no evidence of fracture or other acute processes. Soft tissues: There is a nonobstructing left inguinal hernia containing fat and possibly a small amount of mesentery. The extra-abdominal soft tissues are normal. IMPRESSION: 1. No evidence of acute intra-abdominal trauma. 2. Findings consistant with cholelitiasis without cholecystitis. 3. Infrarenal abdominal aortic aneurysm measuring 4.1 cm. No evidence of leakage or rupture. Lab Data Lab results reviewed: Yes I reviewed the patient's lab results. Labs: Laboratory Tests Range/Units 06/06/22 06/06/22 06/06/22 18:54 19:00 19:00 WBC (4.4-10.8) 10^3/uL 11.59 H RBC (4.36-5.78) 10^6/uL 5.38 Hgb (13.5-17.5) g/dL 14.8 Hct (40.0-50.0) % 45.9 MCV (80-95) fL 85 MCH (27.0-33.0) pg 27.5 MCHC (32.0-36.0) % 32.2 RDW (11.8-14.1) % 15.4 H Plt Count (130-400) 10^3/uL 236 MPV (8.0-11.0) fL 10.2 Immature Gran % 0.2 Neutrophils % 82.0 Lymphocytes % 11.1 Monocytes % 4.7 Eosinophils % 1.1 Basophils % 0.9 Nucleated RBC % (0.0-0.3) % 0.0 Absolute Neutrophils (1.2-6.7) 10^3/uL 9.50 H Absolute Lymphocytes (1.2-3.4) 10^3/uL 1.29 Absolute Monocytes (0.1-0.8) 10^3/uL 0.54 Absolute Eosinophils (0.0-0.7) 10^3/uL 0.13 Absolute Basophils (0.0-0.2) 10^3/uL 0.10 D-Dimer (<500) ng/mlFEU VBG Lactate (0.6-1.4) mmol/L Sodium (136-145) mmol/L 139 Potassium (3.5-5.1) mmol/L 4.4 Chloride (98-107) mmol/L 103 Carbon Dioxide (21.0-32.0) mmol/L 25.2 Anion Gap (3-11) mmol/L 10.8 BUN (7-18) mg/dL 16 Creatinine (0.70-1.30) mg/dL 1.3 Est GFR (CKD-EPI 2020) (mL/min/1.73m2) 58.73 Glucose (74-106) mg/dL 170 H Calcium (8.5-10.1) mg/dL 9.1 Total Bilirubin (0.2-1.0) mg/dL 0.4 AST (15-37) U/L 13 L ALT (16-63) U/L 13 L Alkaline Phosphatase (46-116) U/L 66 Troponin I (<or=60) ng/L Total Protein (6.4-8.2) g/dL 7.6 Albumin (3.4-5.0) g/dL 3.7 Lipase (73-393) U/L 127 Urine Color (Yellow) Yellow Urine Clarity (Clear) Clear Urine pH (5-8) 5.5 Ur Specific [place] (1.005-1.025) 1.025 Urine Protein (Negative) mg/dL Negative Urine Ketones (Negative) mg/dL Trace H Urine Blood (Negative) Negative Urine Nitrite (Negative) Negative Urine Bilirubin (Negative) Negative Urine Urobilinogen (Up TO 0.2) EU/dL 0.2 Ur Leukocyte Esterase (Negative) Negative Urine Glucose (Negative) mg/dL 500 H COVID-19 Source SARS-CoV-2 (PCR) (Negative) Patient ABO/Rh Antibody Screen Crossmatch Range/Units 06/06/22 06/06/22 06/06/22 21:11 21:20 21:20 WBC (4.4-10.8) 10^3/uL RBC (4.36-5.78) 10^6/uL Hgb (13.5-17.5) g/dL Hct (40.0-50.0) % MCV (80-95) fL MCH (27.0-33.0) pg MCHC (32.0-36.0) % RDW (11.8-14.1) % Plt Count (130-400) 10^3/uL MPV (8.0-11.0) fL Immature Gran % Neutrophils % Lymphocytes % Monocytes % Eosinophils % Basophils % Nucleated RBC % (0.0-0.3) % Absolute Neutrophils (1.2-6.7) 10^3/uL Absolute Lymphocytes (1.2-3.4) 10^3/uL Absolute Monocytes (0.1-0.8) 10^3/uL Absolute Eosinophils (0.0-0.7) 10^3/uL Absolute Basophils (0.0-0.2) 10^3/uL D-Dimer (<500) ng/mlFEU VBG Lactate (0.6-1.4) mmol/L 3.2 H* Sodium (136-145) mmol/L Potassium (3.5-5.1) mmol/L Chloride (98-107) mmol/L Carbon Dioxide (21.0-32.0) mmol/L Anion Gap (3-11) mmol/L BUN (7-18) mg/dL Creatinine (0.70-1.30) mg/dL Est GFR (CKD-EPI 2020) (mL/min/1.73m2) Glucose (74-106) mg/dL Calcium (8.5-10.1) mg/dL Total Bilirubin (0.2-1.0) mg/dL AST (15-37) U/L ALT (16-63) U/L Alkaline Phosphatase (46-116) U/L Troponin I (<or=60) ng/L < 50 Total Protein (6.4-8.2) g/dL Albumin (3.4-5.0) g/dL Lipase (73-393) U/L Urine Color (Yellow) Urine Clarity (Clear) Urine pH (5-8) Ur Specific [place] (1.005-1.025) Urine Protein (Negative) mg/dL Urine Ketones (Negative) mg/dL Urine Blood (Negative) Urine Nitrite (Negative) Urine Bilirubin (Negative) Urine Urobilinogen (Up TO 0.2) EU/dL Ur Leukocyte Esterase (Negative) Urine Glucose (Negative) mg/dL COVID-19 Source SARS-CoV-2 (PCR) (Negative) Patient ABO/Rh O Positive Antibody Screen NEGATIVE Crossmatch See Detail Range/Units 06/06/22 06/06/22 06/07/22 21:20 21:37 00:50 WBC (4.4-10.8) 10^3/uL RBC (4.36-5.78) 10^6/uL Hgb (13.5-17.5) g/dL Hct (40.0-50.0) % MCV (80-95) fL MCH (27.0-33.0) pg MCHC (32.0-36.0) % RDW (11.8-14.1) % Plt Count (130-400) 10^3/uL MPV (8.0-11.0) fL Immature Gran % Neutrophils % Lymphocytes % Monocytes % Eosinophils % Basophils % Nucleated RBC % (0.0-0.3) % Absolute Neutrophils (1.2-6.7) 10^3/uL Absolute Lymphocytes (1.2-3.4) 10^3/uL Absolute Monocytes (0.1-0.8) 10^3/uL Absolute Eosinophils (0.0-0.7) 10^3/uL Absolute Basophils (0.0-0.2) 10^3/uL D-Dimer (<500) ng/mlFEU 959 H VBG Lactate (0.6-1.4) mmol/L Sodium (136-145) mmol/L Potassium (3.5-5.1) mmol/L Chloride (98-107) mmol/L Carbon Dioxide (21.0-32.0) mmol/L Anion Gap (3-11) mmol/L BUN (7-18) mg/dL Creatinine (0.70-1.30) mg/dL Est GFR (CKD-EPI 2020) (mL/min/1.73m2) Glucose (74-106) mg/dL Calcium (8.5-10.1) mg/dL Total Bilirubin (0.2-1.0) mg/dL AST (15-37) U/L ALT (16-63) U/L Alkaline Phosphatase (46-116) U/L Troponin I (<or=60) ng/L < 50 Total Protein (6.4-8.2) g/dL Albumin (3.4-5.0) g/dL Lipase (73-393) U/L Urine Color (Yellow) Urine Clarity (Clear) Urine pH (5-8) Ur Specific [place] (1.005-1.025) Urine Protein (Negative) mg/dL Urine Ketones (Negative) mg/dL Urine Blood (Negative) Urine Nitrite (Negative) Urine Bilirubin (Negative) Urine Urobilinogen (Up TO 0.2) EU/dL Ur Leukocyte Esterase (Negative) Urine Glucose (Negative) mg/dL COVID-19 Source Nasal/Nares SARS-CoV-2 (PCR) (Negative) Negative Patient ABO/Rh Antibody Screen Crossmatch Range/Units 06/07/22 00:50 WBC (4.4-10.8) 10^3/uL RBC (4.36-5.78) 10^6/uL Hgb (13.5-17.5) g/dL Hct (40.0-50.0) % MCV (80-95) fL MCH (27.0-33.0) pg MCHC (32.0-36.0) % RDW (11.8-14.1) % Plt Count (130-400) 10^3/uL MPV (8.0-11.0) fL Immature Gran % Neutrophils % Lymphocytes % Monocytes % Eosinophils % Basophils % Nucleated RBC % (0.0-0.3) % Absolute Neutrophils (1.2-6.7) 10^3/uL Absolute Lymphocytes (1.2-3.4) 10^3/uL Absolute Monocytes (0.1-0.8) 10^3/uL Absolute Eosinophils (0.0-0.7) 10^3/uL Absolute Basophils (0.0-0.2) 10^3/uL D-Dimer (<500) ng/mlFEU VBG Lactate (0.6-1.4) mmol/L 3.0 H* Sodium (136-145) mmol/L Potassium (3.5-5.1) mmol/L Chloride (98-107) mmol/L Carbon Dioxide (21.0-32.0) mmol/L Anion Gap (3-11) mmol/L BUN (7-18) mg/dL Creatinine (0.70-1.30) mg/dL Est GFR (CKD-EPI 2020) (mL/min/1.73m2) Glucose (74-106) mg/dL Calcium (8.5-10.1) mg/dL Total Bilirubin (0.2-1.0) mg/dL AST (15-37) U/L ALT (16-63) U/L Alkaline Phosphatase (46-116) U/L Troponin I (<or=60) ng/L Total Protein (6.4-8.2) g/dL Albumin (3.4-5.0) g/dL Lipase (73-393) U/L Urine Color (Yellow) Urine Clarity (Clear) Urine pH (5-8) Ur Specific [place] (1.005-1.025) Urine Protein (Negative) mg/dL Urine Ketones (Negative) mg/dL Urine Blood (Negative) Urine Nitrite (Negative) Urine Bilirubin (Negative) Urine Urobilinogen (Up TO 0.2) EU/dL Ur Leukocyte Esterase (Negative) Urine Glucose (Negative) mg/dL COVID-19 Source SARS-CoV-2 (PCR) (Negative) Patient ABO/Rh Antibody Screen Crossmatch ECG Data Attestation: I personally reviewed and interpreted this ECG (s) as follows: Interpretation: rate of 79, sinus, no stemi. Exam Const General: cooperative and no acute distress Orientation: alert, awake and oriented x3 HENMT Head: normal to inspection Face and sinus: normal facial exam Eyes General: appearance normal, both eyes and all related structures Pupils: PERRL EOM: EOM intact bilaterally Neck Neck: normal visual inspection and No submandibular swelling Lymphatic: no lymphadenopathy noted Chest Chest: normal inspection of the chest and no tenderness Resp Effort & Inspection: normal respiratory effort and able to speak in complete sentences Auscultation: clear to auscultation bilaterally Cardio Rate: regular rate Rhythm: regular rhythm GI Inspection: normal to inspection Palpation: soft, not firm, not rigid and nontender Auscultation: normal bowel sounds Back/Spine/Pelvis Thoracic/Lumbar Spine: thoracic and lumbar spine normal to inspection Back/spine/pelvis image: 1. Tenderness to palpation. No evidence of edema, erythema, ecchymoses, rash, lesions or step off. Skin General skin exam: no rashes or lesions noted Neuro General: patient alert, patient awake, patient oriented x3 and moves all extremities Cognition: normal cognition Speech: speech normal Motor: muscle tone normal throughout Sensory Exam: no sensory deficits noted Extrem General: normal to inspection, full ROM, capillary refill normal, no calf tenderness bilaterally and no edema Psych Appearance: grossly normal Mental Status: mental status grossly normal Speech and Movement: speech and movement normal Affect: normal affect Sign Out Sign Out Data: Sign Out Comment: Presented with back pain, CT imaging reveals an infrarenal abdominal aortic aneurysm measuring 4.1 cm. Elevated D-dimer and lactate. Discussed case with vascular surgery at [facility] who recommended ER to ER transfer for vascular surgical evaluation. Unfortunately they are at capacity and recommend rechecking at 9 AM tomorrow morning. In the meantime [facility] contacted, images pushed, awaiting callback from vascular for potential transfer. Last updated by Wilber Flores PA at 06/06/22 23:33 Discharge Plan Disposition Patient Disposition: AGAINST MEDICAL ADVICE Condition: Improving Discharge Details Clinical Impression: Fall, Back contusion, High serum lactate, Hypotension Primary Care Provider: Tracie,Local ED Provider: Ebony Moore Home Meds and New Rx's Prescriptions: Continued metformin 1,000 mg Tablet 1,000 mg PO BID glipizide 10 mg Tablet 10 mg PO BID lisinopril 5 mg Tablet 5 mg PO DAILY aspirin 81 mg Capsule 81 mg PO DAILY gabapentin 600 mg Tablet 600 mg PO TID temazepam 30 mg Capsule 30 mg PO QHS PRN atorvastatin 20 mg Tablet 20 mg PO DAILY Jardiance 10 mg Tablet 10 mg PO DAILY Discharge Instructions Instructions: Nonruptured Abdominal Aortic Aneurysm (DC), Contusion in Adults (ED) Additional Instructions: You are leaving the hospital AGAINST MEDICAL ADVICE. Your blood pressure has been low today while in the emergency department and it would be recommended that you stay for continued observation overnight to continue to monitor your blood pressure and for repeat blood testing. You have been placed on care management first to arrange for a follow-up a ppointment with [facility] vascular surgery for reevaluation of your abdominal aortic aneurysm noted on CT imaging today. Apply ice to the affected area several times daily for 20 minutes at a time. Follow-up with your primary care doctor within 1 week. Return to the emergency department with any worsening or new concerning symptoms such as fever, persistent vomiting, abdomimal pain or any other concerns. Discharge Data Discharge Date/Time-TO BE ENTERED AT DEPARTURE: 06/07/22 01:42 Discharge Physician: Ebony Moore
[2022-06-07 00:45] VITALS: BP 89/49; PULSE 72; RESP 16; O2SAT 98
[2022-06-07 01:16] LABS: Troponin I < 50 ng/L (<or=60)
[2022-06-07 01:41] VITALS: BP 116/55; PULSE 78; O2SAT 98
--- NOTE | 2022-06-07 05:14 | NUR.NOTE ---
Referral to Care Management to refer patient to [facility] Vascular Surgeon sooner rather than later. Patient has a stable Aortic Aneurysm. Patient is from [place] unsure how much longer he will be in the area.Nursing Note:
== END 2022-06-07 01:42 | disposition left against medical advice (07) ==
PROVIDERS: Physician Assistant; Emergency Provider Physician Assistant
DX: I71.43 Infrarenal abdominal aortic aneurysm, without rupture (principal); R79.1 Abnormal coagulation profile; D72.829 Elevated white blood cell count, unspecified; I74.19 Embolism and thrombosis of other parts of aorta; I95.9 Hypotension, unspecified; I10 Essential (primary) hypertension; E11.40 Type 2 diabetes mellitus with diabetic neuropathy, unspecified; Z79.84 Long term (current) use of oral hypoglycemic drugs; Z20.822 Contact with and (suspected) exposure to COVID-19; Z53.20 Procedure and treatment not carried out because of patient's decision for unspecified reasons
CPT/HCPCS: 74177; 80053; 83690; 86850; 86900; 86901; 86920; 87635; 93005; 96361; 96374; 96375; 99291; 71260; 81003; 83605; 84484; 85025; 85379; 93010; J2270; J3490

== ENCOUNTER 2023-03-23 13:30 | Inpatient (IN) | payer MEDICARE, SELFPAY ==
[2023-03-23] VITALS (10 sets, daily range): BP systolic 118–149; BP diastolic 34–72; PULSE 69–79; RESP 16–23; TEMP 36.5–37.7; O2SAT 98–100
--- NOTE | 2023-03-23 14:12 | ED.GENADUL_ITS ---
Discharge Plan Discharge Details Chief Complaint: Vascular Primary Care Provider: TracieLocal ED Provider: Ashish Bledsoe Home Meds and New Rx's Prescriptions: No Action metformin 1,000 mg Tablet 1,000 mg PO BID glipizide 10 mg Tablet 10 mg PO BID lisinopril 5 mg Tablet 5 mg PO DAILY aspirin 81 mg Capsule 81 mg PO DAILY gabapentin 600 mg Tablet 600 mg PO TID temazepam 30 mg Capsule 30 mg PO QHS PRN atorvastatin 20 mg Tablet 20 mg PO DAILY Jardiance 10 mg Tablet 10 mg PO DAILY Medical Decision Making 73-year-old male presents with bilateral foot infections, chronic wound to great toe on left lower extremity, wound appears to go to the bone and involves joint space, purulent material wounds age, right foot showing area of cellulitis dorsally with adjacent eschar approximately 2.5 cm on the lateral aspect of right foot; pulses unable to be palpated however left tibialis posterior visualized on bedside Doppler ultrasound and right dorsalis pedis visualized with ultrasound as well. Extremities are warm however decreased sensation likely related to chronic diabetic neuropathy. High clinical suspicion for osteomyelitis of left great toe, concern for cellulitis of right foot with possible underlying osteomyelitis given chronic eschar and degree of inflammation currently. Will obtain labs cultures, empiric antibiotics Vanco cefepime, lactate, MRI bilateral feet to better aid likely need for debridement and/or amputation. 16: 09 patient just completed MRI with and without contrast bilateral feet, antibiotics swelling, labs pending, patient will need admission for at minimum cellulitis of right foot with high likelihood for osteomyelitis of left great toe. High clinical suspicion the patient will eventually need amputation of great toe given history and physical. HPI General Date/Time Provider Initiated Documentation: 03/23/23 13:48 . HPI Narrative: 73-year-old male history of diabetes presents with poorly healing wound to left great toe over the last year after stubbing it developing a laceration having his toenail removed and repaired, has developed redness and pain to his right foot over the last couple of weeks has had a eschar formed over the last month laterally. Denies fevers chills nausea or vomiting. Related Data Home Medications Medication Instructions Recorded Confirmed aspirin 81 mg capsule 81 mg PO DAILY 06/06/22 06/06/22 atorvastatin 20 mg tablet 20 mg PO DAILY 06/06/22 06/06/22 empagliflozin 10 mg tablet 10 mg PO DAILY 06/06/22 06/06/22 (Jardiance) gabapentin 600 mg tablet 600 mg PO TID 06/06/22 06/06/22 glipizide 10 mg tablet 10 mg PO BID 06/06/22 06/06/22 lisinopril 5 mg tablet 5 mg PO DAILY 06/06/22 06/06/22 metformin 1,000 mg tablet 1,000 mg PO BID 06/06/22 06/06/22 temazepam 30 mg capsule 30 mg PO QHS PRN 06/06/22 06/06/22 General Stated Complaint: Vascular MO: 3 Review of Systems Narrative: Review of Systems Constitutional: negative Eyes: negative ENT: negative Cardiovascular: negative Respiratory: negative Gastrointestinal: negative : negative Musculoskeletal: Feet infections Skin: Feet infections Neurologic: negative Psych: negative [facility] Medical History (Updated 07/08/22 @ 00:09 by ALDA STOVER) Diabetes Kidney stones Prostate cancer Surgical History (Updated 06/07/22 @ 00:40 by Ebony Moore DO) History of hernia repair Social History Smoking/Tobacco Use Status: Current every day Tobacco Type: cigarettes Smoking risk assessment performed?: Yes Alcohol Intake: current Substance use type: does not use Housing: house Do you feel safe at home: Yes Do you feel safe in your relationship?: Yes Exam Narrative Exam Narrative: Physical Examination General: alert, awake, cooperative, resting comfortably, no acute distress HEENT: normocephalic, atraumatic; PERRL, EOM intact, conjunctiva normal; no nasal discharge; moist mucous membranes, oral and pharyngeal mucosa normal, tolerating secretions Neck: supple, trachea midline; full ROM Chest: normal to inspection Respiratory: normal respiratory effort, speaking in full sentences, clear to auscultation, no wheezing, rales or rhonchi Cardiac: regular rate, regular rhythm, S1S2 intact, no murmurs rubs or gallops GI: abdomen soft, non-tender, non-distended; no palpable mass or hepatosplenomegaly Skin: no lesions, rashes or trauma appreciated Neuro: AAOx3, normal speech, moving all extremities Extremities: 2.5 cm gaping chronic wound to dorsal interphalangeal joint of left great toe, purulent material at wound edge, wound appears to go to the depth of bone; induration erythema encompassing large majority of dorsal aspect of right foot with area of 2.5 cm circular eschar lateral aspect of foot; DP pulses are not palpable, left tibialis posterior pulse visualized with Doppler ultrasound, right DP pulse visualized with ultrasound; feet are warm, however bilaterally desensate Psych: Appropriate mood and affect Course Vital Signs Vital signs: Vital Signs Temperature 36.5 C 03/23/23 13:40 Pulse 79 03/23/23 13:40 Respiratory Rate 18 03/23/23 13:40 Blood Pressure 141/57 H 03/23/23 13:40 Pulse Oximetry 100 03/23/23 13:40 Temperature 36.5 C 03/23/23 13:40 Temperature Source Tympanic 03/23/23 13:40 Pulse 79 03/23/23 13:40 Respiratory Rate 18 03/23/23 13:40 Respiratory Effort Normal 03/23/23 13:44 Blood Pressure 141/57 H 03/23/23 13:40 Pulse Oximetry 100 03/23/23 13:40 Oxygen Delivery Method Room Air 03/23/23 13:40 Oxygen Flow Rate 0 03/23/23 13:40 Pain Level 6 03/23/23 13:40 Lab/Test Results Lab/Test Results: 03/23/23 14:01 Blood Blood Culture - Pending 03/23/23 14:01 Blood Blood Culture - Pending Sign Out Sign Out Data: Sign Out Comment: DM, bilateral feet wounds: L great toe likely osteomyelitis, R foot cellulitis with lateral eschar; pending MRI, labs; admission likely +/- ortho consultation for potential amputation pending MRI results Last updated by Ashish Bledsoe MD at 03/23/23 16:08
[2023-03-23 14:18] LABS: Lactate 2.9 mmol/L (0.6-1.4)
[2023-03-23] MEDS: CEFEPIME 2 GM in Normal Saline 100 ML IVPB (14:28)
[2023-03-23 14:38] LABS: Abs Immature Grans 0.09 10^3/uL (0.0-0.06); Absolute Basophil Count 0.07 10^3/uL (0.0-0.2); Absolute Eosinophil Count 0.14 10^3/uL (0.0-0.7); Absolute Monocyte Count 1.24 10^3/uL (0.1-0.8); Absolute Neutrophil Count 11.25 10^3/uL (1.2-6.7); Basophils % 0.5; HGB 13.7 g/dL (13.5-17.5); Immature Grans % 0.6; Lymphocytes % 10.5; MCH 27.6 pg (27.0-33.0); MCHC 32.6 % (32.0-36.0); MCV 85 fL (80-95); Monocytes % 8.7; Neutrophils % 78.7; Platelet Count 282 10^3/uL (130-400); RBC 4.96 10^6/uL (4.36-5.78); RDW 14.3 % (11.8-14.1); RDW-SD 43.9 fL; WBC 14.29 10^3/uL (4.4-10.8)
[2023-03-23 14:52] LABS: ALT 9 U/L (16-63); AST 7 U/L (15-37); Alkaline Phosphatase 68 U/L (46-116); Anion Gap 10.3 mmol/L (3-11); BUN 19 mg/dL (7-18); Bilirubin, Total 0.7 mg/dL (0.2-1.0); CO2 25.7 mmol/L (21.0-32.0); CREATININE 1.5 mg/dL (0.70-1.30); Calcium 8.7 mg/dL (8.5-10.1); Chloride 104 mmol/L (98-107); Estimated GFR 49.16 (mL/min/1.73m2); Glucose 156 mg/dL (74-106); Potassium 4.2 mmol/L (3.5-5.1); Sodium 140 mmol/L (136-145); Total Protein 7.9 g/dL (6.4-8.2)
[2023-03-23 15:00] LABS: INR 0.9 (0.9-1.1); Prothrombin Time 9.5 sec (9.3-11.0)
[2023-03-23] MEDS: Gadoterate meglumine 20 ML VIAL IVP (15:12)
[2023-03-23] MEDS: Normal Saline Flush 10 ML SYR IVP ×2 (15:13→22:34)
--- NOTE | 2023-03-23 15:35 | DI.MRI_ITS ---
Exam(s) MR LOWER EXTREMITY RT WO/W EXAM: MR LOWER EXTREMITY RT WO/W CLINICAL HISTORY: concern for osteomyelitis of right foot TECHNIQUE: Multiplanar multisequence MRI was performed. Both pre and post contrast infused sequence s were performed. Contrast injected was 18 mL Dotarem. COMPARISON: CR XR FOOT RT COMPLETE from 03/23/2023 FINDINGS: SOFT TISSUES: There is a significant ulcer on the lateral aspect of the foot adjacent to the head of the 5th metatarsal and proximal phalanx. MARROW:There is abnormal signal evident within the head of the 5th metatarsal, including intra-articu lar marrow signal decrease on non fat sat T1 images as well as increased signal on STIR. There is al so intraosseous enhancement at this level. Findings in the adjacent base of the proximal phalanx are equivocal MUSCLES: Edema. No discernible abscess in the soft tissues.No obvious tendon tears in the field of v iew. OTHER: No significant joint effusions. No para-articular ganglia cysts evident. IMPRESSION: 1. Findings are suspicious for osteomyelitis in the head of the 5th metatarsal, this immediately mela cent to the prominent again ulcer. 2. Mild findings in the adjacent proximal phalanx of the 5th toe but less definitive than in the head of the adjacent 5th metatarsal. 3. No soft tissue abscess seen. DATA REPOSITORY:
--- NOTE | 2023-03-23 16:21 | W.EDPROG ---
Date of service: 03/23/23 Time of Service: 16:21 Medical Decision Making This patient was signed out to me. Please see previous notes for H&P and in initial eval. In brief, patient with non-healing wounds and likely osteomyelitis of left great and 5th toes. Plan to follow-up MRI reads and consult orthopedics for admission, possible amputation. Lactic slightly elevated at 2.9; normal vital signs and no s/s to suggest sepsis. Will trend. MRI consistent with osteomyelitis of left great toe. Discussed with orthopedist; foot xrays requested for possible operative planning which were ordered as well as ESTELA (ESTELA 0.72). Plan for likely OR tomorrow. Accepted by hospitalist to medicine service; admission holding orders placed at their request. Imaging Data Radiologic Study: Imaging: MRI Radiologist's impression: IMPRESSION: Osteomyelitis involving the 1st digit. MPRESSION: Mild edema and enhancement within the head of the 5th metatarsal bone and base of the 5th proximal phalanx, suggestive of inflammation. Although there is no evidence of significant bone marrow replacement, this scan cannot exclude early developing osteomyelitis in these regions. Clinical correlation recommended. Lab Data Lab results reviewed: Yes I reviewed the patient's lab results. Labs: 03/23/23 14:28 Blood Blood Culture - Pending 03/23/23 14:05 Blood Blood Culture - Pending Laboratory Tests Range/Units 03/23/23 03/23/23 03/23/23 14:05 14:05 14:05 WBC Cancelled RBC Cancelled Hgb Cancelled Hct Cancelled MCV Cancelled MCH Cancelled MCHC Cancelled RDW Cancelled Plt Count Cancelled MPV Cancelled Immature Gran % Cancelled Neutrophils % Cancelled Band Neutrophils % Cancelled Lymphocytes % Cancelled Atypical Lymphs % Cancelled Monocytes % Cancelled Eosinophils % Cancelled Basophils % Cancelled Metamyelocytes % Cancelled Myelocytes % Cancelled Promyelocytes % Cancelled Other Cells % Cancelled Nucleated RBC % Cancelled Absolute Neutrophils Cancelled Absolute Lymphocytes Cancelled Absolute Monocytes Cancelled Absolute Eosinophils Cancelled Absolute Basophils Cancelled RBC Morphology Cancelled Polychromasia Cancelled Hypochromasia Cancelled Poikilocytosis Cancelled Basophilic Stippling Cancelled Anisocytosis Cancelled Microcytosis Cancelled Macrocytosis Cancelled Spherocytes Cancelled Tear Drop Cells Cancelled Ovalocytes Cancelled Stomatocytes Cancelled [place] Bodies Cancelled Yao Cells/Echinocytes Cancelled Acanthocytes (Spur) Cancelled Schistocytes Cancelled PT INR APTT VBG Lactate (0.6-1.4) mmol/L 2.9 H* Sodium Cancelled Potassium Cancelled Chloride Cancelled Carbon Dioxide Cancelled Anion Gap Cancelled BUN Cancelled Creatinine Cancelled Est GFR (CKD-EPI 2020) Cancelled Glucose Cancelled Calcium Cancelled Total Bilirubin Cancelled AST Cancelled ALT Cancelled Alkaline Phosphatase Cancelled Total Protein Cancelled Albumin Cancelled Range/Units 03/23/23 03/23/23 03/23/23 14:05 14:28 14:28 WBC 14.29 H RBC 4.96 Hgb 13.7 Hct 42.0 MCV 85 MCH 27.6 MCHC 32.6 RDW 14.3 H Plt Count 282 MPV 9.0 Immature Gran % 0.6 Neutrophils % 78.7 Band Neutrophils % Lymphocytes % 10.5 Atypical Lymphs % Monocytes % 8.7 Eosinophils % 1.0 Basophils % 0.5 Metamyelocytes % Myelocytes % Promyelocytes % Other Cells % Nucleated RBC % 0.0 Absolute Neutrophils 11.25 H Absolute Lymphocytes 1.50 Absolute Monocytes 1.24 H Absolute Eosinophils 0.14 Absolute Basophils 0.07 RBC Morphology Polychromasia Hypochromasia Poikilocytosis Basophilic Stippling Anisocytosis Microcytosis Macrocytosis Spherocytes Tear Drop Cells Ovalocytes Stomatocytes [place] Bodies [place] Cells/Echinocytes Acanthocytes (Spur) Schistocytes PT Cancelled INR Cancelled APTT Cancelled VBG Lactate (0.6-1.4) mmol/L Sodium 140 Potassium 4.2 Chloride 104 Carbon Dioxide 25.7 Anion Gap 10.3 BUN 19 H Creatinine 1.5 H Est GFR (CKD-EPI 2020) 49.16 Glucose 156 H Calcium 8.7 Total Bilirubin 0.7 AST 7 L ALT 9 L Alkaline Phosphatase 68 Total Protein 7.9 Albumin 3.0 L Range/Units 03/23/23 14:28 WBC RBC Hgb Hct MCV MCH MCHC RDW Plt Count MPV Immature Gran % Neutrophils % Band Neutrophils % Lymphocytes % Atypical Lymphs % Monocytes % Eosinophils % Basophils % Metamyelocytes % Myelocytes % Promyelocytes % Other Cells % Nucleated RBC % Absolute Neutrophils Absolute Lymphocytes Absolute Monocytes Absolute Eosinophils Absolute Basophils RBC Morphology Polychromasia Hypochromasia Poikilocytosis Basophilic Stippling Anisocytosis Microcytosis Macrocytosis Spherocytes Tear Drop Cells Ovalocytes Stomatocytes [place] Bodies Yao Cells/Echinocytes Acanthocytes (Spur) Schistocytes PT 9.5 INR 0.9 APTT 30.0 VBG Lactate (0.6-1.4) mmol/L Sodium Potassium Chloride Carbon Dioxide Anion Gap BUN Creatinine Est GFR (CKD-EPI 2020) Glucose Calcium Total Bilirubin AST ALT Alkaline Phosphatase Total Protein Albumin Sign Out Sign Out Data: Sign Out Comment: DM, bilateral feet wounds: L great toe likely osteomyelitis, R foot cellulitis with lateral eschar; pending MRI, labs; admission likely +/- ortho consultation for potential amputation pending MRI results Last updated by Ashish Bledsoe MD at 03/23/23 16:08 Discharge Plan Discharge Details Chief Complaint: Vascular Primary Care Provider: Tracie,Local ED Provider: Sharon Bah Home Meds and New Rx's Prescriptions: No Action metformin 1,000 mg Tablet 1,000 mg PO BID glipizide 10 mg Tablet 10 mg PO BID lisinopril 5 mg Tablet 5 mg PO DAILY aspirin 81 mg Capsule 81 mg PO DAILY gabapentin 600 mg Tablet 600 mg PO TID temazepam 30 mg Capsule 30 mg PO QHS PRN atorvastatin 20 mg Tablet 20 mg PO DAILY Jardiance 10 mg Tablet 10 mg PO DAILY
--- NOTE | 2023-03-23 16:30 | DI.MRI_ITS ---
Exam(s) MR LOWER EXTREMITY LT WO/W EXAM: MR LOWER EXTREMITY LT WO/W CLINICAL HISTORY: concern for L great toe osteomyelitis, open wound TECHNIQUE: Multiplanar multisequence MRI was performed. COMPARISON: MR MR LOWER EXTREMITY RT WO/W from 03/23/2023 FINDINGS: SOFT TISSUES: There is subcutaneous inflammatory signal around the bones of the great toe. MARROW:There is prominent signal abnormality throughout the entire proximal phalanx of the great toe. Bright signal on STIR and confluent hypointense signal on non fat sat T1 with bone ghosting evident at this level. Also abnormal enhancement. Highly suspicious for osteomyelitis. There is also fransico lar but slightly less prominent signal abnormality in the distal phalanx of the great toe as well as the head of the great toe metatarsal and there is also involvement of the sesamoid bones subjacent to the great toe metatarsal head. MUSCLES: There is edema in the muscles of the distal foot. Cannot exclude myositis. No abscess evid ent. IMPRESSION: Above findings are highly suspicious for osteomyelitis, most prominent in the proximal phalanx of the great toe but also involving the adjacent distal phalanx of the great toe as well as the head of the great toe metatarsal and subjacent sesamoids. DATA REPOSITORY:
[2023-03-23] MEDS: VANCOMYCIN/WATER (PEG) 2 GM/400 ML BAG IV (16:56)
--- NOTE | 2023-03-23 17:07 | DI.VRAD_ITS ---
Addendum created by Kalin Buenrostro MD on 03/23/2023 11:35:19 PM EDT: Intertarsal muscular edema which may be reactive in origin. Myositis not excluded. Initial report created on 03/23/2023 5:07:25 PM EDT: PROCEDURE INFORMATION: Exam: MR Left Lower Extremity Other Than Joint Without and With Contrast; Foot Exam date and time: 03/23/2023 3:36 PM Age: 73 years old Clinical indication: Edema and swelling, leg or foot; Yes, it is localized; Patient HX: Left great toe open wound, great toe is area of interest ? osteo. Diabetic patient. Open wound x1 month TECHNIQUE: Imaging protocol: Magnetic resonance imaging of the left lower extremity without and with contrast. Exam focused on the foot. Total images: 300 Contrast material: DOTAREM; Contrast volume: 18 ml; Contrast route: INTRAVENOUS (IV); COMPARISON: No relevant prior studies available. FINDINGS: Bones/joints: T1 hypointensity/T2 STIR hyperintensity involving the 1st metatarsal head as well as proximal and distal phalanges of the 1st digit. Signal abnormality includes the ossicles at the level of the 1st metatarsal head. There is abnormal bony enhancement of these bones. No significant fluid within the 1st metatarsal phalangeal joint to confirm septic arthritis. Partial bony destructive changes involving the proximal phalanx of the great toe. Soft tissues: There is subcutaneous stranding/inflammatory change surrounding these bony structures but no rim enhancing focal fluid collection. Overlying skin thickening with irregularity corresponding with superficial ulceration. IMPRESSION: Osteomyelitis involving the 1st digit. Dictated and Authenticated by: Kalin Buenrostro MD. Ordering:OLENA Hinojosa MD
--- NOTE | 2023-03-23 17:45 | DI.RAD_ITS ---
Exam(s) XR FOOT LT COMPLETE EXAM: XR FOOT LT COMPLETE CLINICAL HISTORY: osteo left great toe. TECHNIQUE: 2D digital imaging was performed. COMPARISON: CR XR FOOT RT COMPLETE from 03/23/2023 FINDINGS: 3 views There is suspicious bone lucency in the proximal phalanx of the great toe suspicious for osteomyeliti s. Cannot exclude involvement of the adjacent remaining distal phalanx. IMPRESSION: Significant suspicion for osteomyelitis in the proximal phalanx of the great toe. DATA REPOSITORY: RADIATION DOSE DELIVERED:
--- NOTE | 2023-03-23 17:45 | DI.RAD_ITS ---
Exam(s) XR FOOT RT COMPLETE EXAM: XR FOOT RT COMPLETE CLINICAL HISTORY: eschar lateral dorsum. TECHNIQUE: 2D digital imaging was performed. COMPARISON: CR XR FOOT LT COMPLETE from 03/23/2023 FINDINGS: 3 views No evidence of fracture nor dislocation. No radiopaque foreign body. No osseous lesions. No obviou s radiographic evidence of osteomyelitis. IMPRESSION: No radiographic evidence of osteomyelitis in the right foot. DATA REPOSITORY: RADIATION DOSE DELIVERED:
--- NOTE | 2023-03-23 18:24 | DI.VRAD_ITS ---
PROCEDURE INFORMATION: Exam: MR Right Lower Extremity Without and With Contrast; Forefoot Exam date and time: 03/23/2023 3:00 PM Age: 73 years old Clinical indication: Open wound. Patient HX: Right foot redness and swelling, large black wound on right lateral aspect of foot patient sts x1 month. Diabetic patient TECHNIQUE: Imaging protocol: MR of the right foot without and with contrast. Exam focused on the forefoot. Contrast material: DOTAREM; Contrast volume: 18 ml; Contrast route: INTRAVENOUS (IV); COMPARISON: No relevant prior studies available. FINDINGS: Bones/joints: There is mild edema noted within the head of the 5th metatarsal bone and base of the 5th proximal phalanx, without evidence of significant marrow replacement. There is mild associated enhancement noted in these regions. Articular cartilage is normal. No joint effusion. LIGAMENTS: Collateral ligaments of digits: No evidence of tear. TENDONS: Flexor tendons of foot: No evidence of tear. Extensor tendons of foot: No evidence of tear. Soft tissues: Subcutaneous edema noted in the lateral aspect of the foot in the region of the metatarsophalangeal joints. Cutaneous defect also noted in this region. IMPRESSION: Mild edema and enhancement within the head of the 5th metatarsal bone and base of the 5th proximal phalanx, suggestive of inflammation. Although there is no evidence of significant bone marrow replacement, this scan cannot exclude early developing osteomyelitis in these regions. Clinical correlation recommended. Dictated and Authenticated by: Lila Bourgeois MD. Ordering:OLENA Hinojosa MD
--- NOTE | 2023-03-23 19:10 | W.EDPROG ---
Date of service: 03/23/23 Time of Service: 19:10 Sign Out Sign Out Data: Sign Out Comment: DM, bilateral feet wounds: L great toe likely osteomyelitis, R foot cellulitis with lateral eschar; pending MRI, labs; admission likely +/- ortho consultation for potential amputation pending MRI results Last updated by Ashish Bledsoe MD at 03/23/23 16:08 Discharge Plan Disposition Patient Disposition: Admit to [facility] Condition: Serious Discharge Details Clinical Impression: Osteomyelitis Primary Care Provider: TracieLocal ED Provider: Sharon Bah Home Meds and New Rx's Prescriptions: No Action metformin 1,000 mg Tablet 1,000 mg PO BID glipizide 10 mg Tablet 10 mg PO BID lisinopril 5 mg Tablet 5 mg PO DAILY aspirin 81 mg Capsule 81 mg PO DAILY gabapentin 600 mg Tablet 600 mg PO TID temazepam 30 mg Capsule 30 mg PO QHS PRN atorvastatin 20 mg Tablet 20 mg PO DAILY Jardiance 10 mg Tablet 10 mg PO DAILY
--- NOTE | 2023-03-23 19:20 | OCONE_ITS ---
Assessment and Plan Assessment and plan (1) Osteomyelitis of great toe of left foot: Status: Chronic Assessment and plan: 73 year old male with diabetic Left great toe osteomyelitis Recommend medical admission, optimization of glycemic control, IV antibiotics, elevate, float heels/ prevent pressure wounds, and local wound care NPO after midnight for potential I&D/ amputation surgery tomorrow HbA1C, ESR, and CRP ordered ETSELA 0.72 suggests moderate arterial disease and potential need for vascular specialist for additional workup or interventions Will d/w medical team and general surgeons to best coordinate care Update?after reviewing case with orthopedic partner and, hospitalist patient is stable and outpatient care arranged for more specialized and definitive diabetic foot care. PFSH All Active Problems Hyperlipidemia (Chronic) PVD (peripheral vascular disease) (Chronic) Cellulitis and abscess of foot (Acute) Osteomyelitis of great toe of left foot (Chronic) Osteomyelitis (Acute) Medical History Diabetes Kidney stones Prostate cancer Surgical History History of hernia repair Social History Smoking/Tobacco Use Status: Current every day Tobacco Type: cigarettes Smoking risk assessment performed?: Yes Alcohol Intake: current Substance use type: does not use Housing: house Do you feel safe at home: Yes Do you feel safe in your relationship?: Yes Results Last Vital Signs Temp 97.7 F 03/23/23 13:40 Pulse 79 03/23/23 13:40 Resp 18 03/23/23 16:56 BP 141/57 H 03/23/23 13:40 Pulse Ox 100 03/23/23 13:40 Labs 03/24/23 06:04 03/24/23 06:04 Labs: Laboratory Results - last 24 hr 03/23/23 03/23/23 03/23/23 14:05 14:05 14:05 WBC Cancelled RBC Cancelled Hgb Cancelled Hct Cancelled MCV Cancelled MCH Cancelled MCHC Cancelled RDW Cancelled Plt Count Cancelled MPV Cancelled Immature Gran % Cancelled Neutrophils % Cancelled Band Neutrophils % Cancelled Lymphocytes % Cancelled Atypical Lymphs % Cancelled Monocytes % Cancelled Eosinophils % Cancelled Basophils % Cancelled Metamyelocytes % Cancelled Myelocytes % Cancelled Promyelocytes % Cancelled Other Cells % Cancelled Nucleated RBC % Cancelled Absolute Neutrophils Cancelled Absolute Lymphocytes Cancelled Absolute Monocytes Cancelled Absolute Eosinophils Cancelled Absolute Basophils Cancelled RBC Morphology Cancelled Polychromasia Cancelled Hypochromasia Cancelled Poikilocytosis Cancelled Basophilic Stippling Cancelled Anisocytosis Cancelled Microcytosis Cancelled Macrocytosis Cancelled Spherocytes Cancelled Tear Drop Cells Cancelled Ovalocytes Cancelled Stomatocytes Cancelled Garcia-[place] Bodies Cancelled Yao Cells/Echinocytes Cancelled Acanthocytes (Spur) Cancelled Schistocytes Cancelled PT INR APTT VBG Lactate 2.9 H* Sodium Cancelled Potassium Cancelled Chloride Cancelled Carbon Dioxide Cancelled Anion Gap Cancelled BUN Cancelled Creatinine Cancelled Est GFR (CKD-EPI 2020) Cancelled Glucose Cancelled Calcium Cancelled Total Bilirubin Cancelled AST Cancelled ALT Cancelled Alkaline Phosphatase Cancelled Total Protein Cancelled Albumin Cancelled 03/23/23 03/23/23 03/23/23 14:05 14:28 14:28 WBC 14.29 H RBC 4.96 Hgb 13.7 Hct 42.0 MCV 85 MCH 27.6 MCHC 32.6 RDW 14.3 H Plt Count 282 MPV 9.0 Immature Gran % 0.6 Neutrophils % 78.7 Band Neutrophils % Lymphocytes % 10.5 Atypical Lymphs % Monocytes % 8.7 Eosinophils % 1.0 Basophils % 0.5 Metamyelocytes % Myelocytes % Promyelocytes % Other Cells % Nucleated RBC % 0.0 Absolute Neutrophils 11.25 H Absolute Lymphocytes 1.50 Absolute Monocytes 1.24 H Absolute Eosinophils 0.14 Absolute Basophils 0.07 RBC Morphology Polychromasia Hypochromasia Poikilocytosis Basophilic Stippling Anisocytosis Microcytosis Macrocytosis Spherocytes Tear Drop Cells Ovalocytes Stomatocytes Garcia-[place] Bodies Yao Cells/Echinocytes Acanthocytes (Spur) Schistocytes PT Cancelled INR Cancelled APTT Cancelled VBG Lactate Sodium 140 Potassium 4.2 Chloride 104 Carbon Dioxide 25.7 Anion Gap 10.3 BUN 19 H Creatinine 1.5 H Est GFR (CKD-EPI 2020) 49.16 Glucose 156 H Calcium 8.7 Total Bilirubin 0.7 AST 7 L ALT 9 L Alkaline Phosphatase 68 Total Protein 7.9 Albumin 3.0 L 03/23/23 14:28 WBC RBC Hgb Hct MCV MCH MCHC RDW Plt Count MPV Immature Gran % Neutrophils % Band Neutrophils % Lymphocytes % Atypical Lymphs % Monocytes % Eosinophils % Basophils % Metamyelocytes % Myelocytes % Promyelocytes % Other Cells % Nucleated RBC % Absolute Neutrophils Absolute Lymphocytes Absolute Monocytes Absolute Eosinophils Absolute Basophils RBC Morphology Polychromasia Hypochromasia Poikilocytosis Basophilic Stippling Anisocytosis Microcytosis Macrocytosis Spherocytes Tear Drop Cells Ovalocytes Stomatocytes Garcia-[place] Bodies [place] Cells/Echinocytes Acanthocytes (Spur) Schistocytes PT 9.5 INR 0.9 APTT 30.0 VBG Lactate Sodium Potassium Chloride Carbon Dioxide Anion Gap BUN Creatinine Est GFR (CKD-EPI 2020) Glucose Calcium Total Bilirubin AST ALT Alkaline Phosphatase Total Protein Albumin
--- NOTE | 2023-03-23 19:30 | W.PM.HP.N ---
Date of service: 03/23/23 Time of Service: 19:30 Assessment and Plan Assessment and plan (1) Cellulitis and abscess of foot: Start date: 03/23/23 Status: Acute Assessment and plan: This is a 73-year-old gentleman with a couple week history of right foot pain and redness admitted for treatment of cellulitis of the right foot with poor circulation and diabetic neuropathy with numbness. He also has an ulcer over the lateral aspect of that foot without drainage and without evidence of osteomyelitis presently on MRI of that foot. Orthopedic surgery is evaluate the patient for possible amputation of the left great toe for chronic osteomyelitis and they will evaluate this foot as well. Continue IV cefepime and vancomycin pending further evaluation and cultures if can be obtained. (2) Osteomyelitis of great toe of left foot: Status: Chronic Assessment and plan: Orthopedic surgery has been consulted through the ED and do plan amputation of the left great toe. They also should evaluate the patient's right foot. (3) PVD (peripheral vascular disease): Status: Chronic Assessment and plan: Patient appears to have poor circulation with peripheral pulses not palpable but heard with Doppler. Further evaluation with vascular surgery would be appropriate especially if amputations are being entertained. Patient is a smoker. (4) Diabetes: Assessment and plan: Hold usual outpatient medical therapy with glucometer measurements and coverage with short acting insulin while hospitalized. Patient is on low-dose lisinopril which may be nephro protective with no obvious history of hypertension. (5) Hyperlipidemia: Status: Chronic Assessment and plan: Continue statin and adjust as outpatient. History of Present Illness History of Present Illness Chief Complaint: Right foot with pain and redness as well as ulcer, left 1st toe ulcer Narrative: This is a 73-year-old gentleman who usually resides in [place] who presented to the outpatient clinic with a 1 to 2-week history of painful red right foot with eschar over the lateral aspect of the foot just at the base of the toe. There is been no drainage. He has had no fever or chills and denies any other systemic symptoms. He is a diabetic and does have numbness of his feet chronically. He also has an ulcer over the top of his left large toe which is deformed from a previous trauma and this is not draining but not healing. The ED evaluation did reveal osteomyelitis in the left great toe with planned admission for orthopedic surgery to perform amputation. The patient is concerned about amputation and not healing. He does have poor circulation with pulses only discovered by Doppler. The patient thinks that he is here mostly for treatment of his right foot cellulitis which is more acute. There is not appear to be osteomyelitis in the right foot at this time. The patient is very deaf and obtaining history and conversing was made difficult by this problem. He is a full code. Review of Systems Narrative: 13 point review of systems otherwise unrevealing or stable.. PFSH All Active Problems (Updated 03/24/23 @ 08:10 by Gonzalez Horne) Hyperlipidemia (Chronic) PVD (peripheral vascular disease) (Chronic) Cellulitis and abscess of foot (Acute) Osteomyelitis of great toe of left foot (Chronic) Osteomyelitis (Acute) Medical History Diabetes Kidney stones Prostate cancer Surgical History History of hernia repair Social History Smoking/Tobacco Use Status: Current every day Tobacco Type: cigarettes Smoking risk assessment performed?: Yes Alcohol Intake: current Substance use type: does not use Housing: house Do you feel safe at home: Yes Do you feel safe in your relationship?: Yes Meds Allergies and Home Medications Allergies Allergy/AdvReac Type Severity Reaction Status Date / Time No Known Allergies Allergy Unverified 03/23/23 21:24 Home Medications Medication Instructions Recorded Confirmed Type aspirin 81 mg capsule 81 mg PO DAILY 06/06/22 06/06/22 History atorvastatin 20 mg tablet 20 mg PO DAILY 06/06/22 06/06/22 History empagliflozin 10 mg tablet 10 mg PO DAILY 06/06/22 03/23/23 History (Jardiance) gabapentin 600 mg tablet 600 mg PO TID 06/06/22 03/23/23 History glipizide 10 mg tablet 10 mg PO BID 06/06/22 03/23/23 History lisinopril 5 mg tablet 5 mg PO DAILY 06/06/22 03/23/23 History metformin 1,000 mg tablet 1,000 mg PO BID 06/06/22 03/23/23 History temazepam 30 mg capsule 30 mg PO QHS PRN 06/06/22 03/23/23 History Exam Narrative Exam Narrative: General: Patient appears older than stated age, he is hard of hearing, alert and oriented to person and place at least. He is in no acute distress. He has slightly pressured speech and wanders in conversation. HEENT: Normocephalic, coarsened facial features, eyes with pupils equal and reactive to light symmetrically, extraocular movement tact and sclera anicteric. Oropharynx with slightly dry mucosa and poor dentition. Neck: Supple without JVD. Back: Stooped posture without CVA tenderness. Lungs: Fair aeration clear to auscultation percussion. Heart: Regular rate and rhythm with no murmurs or gallops appreciated. Abdomen: Slightly obese contour, soft and nontender to palpation with no palpable hepatosplenomegaly. Genitalia/rectal: Exam deferred. Extremities: Upper extremities with good pulses and no clubbing or cyanosis. Lower extremities with atrophic, hyperpigmented skin over the ankles and feet with deformed toes including dry linear ulcer over the dorsal aspect of the left large toe at the base of the nail with a deformed nail and deformed IP joint with flexion contracture. Right foot with erythema and increased warmth to touch over the dorsum of the foot with tenderness. There is a dry large scabbed over ulcer over the lateral aspect of the base of the fifth toe and area of the head of the fifth metatarsal. This is not fluctuant. Skin: Skin tears over the lower extremities as described, otherwise actinic changes over sun exposed areas, normal color over not exposed areas, warm and dry. Neuro: Cranial nerves II through XII gross intact, no focalizing motor deficits. Decreased sensation over both lower extremities from the knees down. No tremor. Psych: Pressured speech with slightly anxious affect. Normal mood. No abnormal thought processes. Remote and recent memory grossly intact. Results Imaging Imaging Studies: EXAM:? XR FOOT RT COMPLETE CLINICAL HISTORY: ? eschar lateral dorsum. ? TECHNIQUE:? 2D digital imaging was performed. COMPARISON:? CR XR FOOT LT COMPLETE from 03/23/2023 FINDINGS: 3 views No evidence of fracture nor dislocation.? No radiopaque foreign body.? No osseous lesions.? No obvious radiographic evidence of osteomyelitis. IMPRESSION: No radiographic evidence of osteomyelitis in the right foot. Exam: MR Right Lower Extremity Without and With Contrast; Forefoot Exam date and time: 03/23/2023 3:00 PM Age: 73 years old Clinical indication: Open wound. Patient HX: Right foot redness and swelling, large black wound on right lateral aspect of foot patient sts x1 month. Diabetic patient TECHNIQUE: Imaging protocol: MR of the right foot without and with contrast. Exam focused on the forefoot. Contrast material: DOTAREM; Contrast volume: 18 ml; Contrast route: INTRAVENOUS (IV);? COMPARISON: No relevant prior studies available. FINDINGS: Bones/joints: There is mild edema noted within the head of the 5th metatarsal bone and base of the 5th proximal phalanx, without evidence of significant marrow replacement. There is mild associated enhancement noted in these regions. Articular cartilage is normal. No joint effusion. LIGAMENTS: Collateral ligaments of digits: No evidence of tear. TENDONS: Flexor tendons of foot: No evidence of tear. Extensor tendons of foot: No evidence of tear. Soft tissues: Subcutaneous edema noted in the lateral aspect of the foot in the region of the metatarsophalangeal joints. Cutaneous defect also noted in this region. IMPRESSION: Mild edema and enhancement within the head of the 5th metatarsal bone and base of the 5th proximal phalanx, suggestive of inflammation. Although there is no evidence of significant bone marrow replacement, this scan cannot exclude early developing osteomyelitis in these regions. Clinical correlation recommended. Exam: MR Left Lower Extremity Other Than Joint Without and With Contrast; Foot Exam date and time: 03/23/2023 3:36 PM Age: 73 years old Clinical indication: Edema and swelling, leg or foot; Yes, it is localized; Patient HX: Left great toe open wound, great toe is area of interest ? osteo. Diabetic patient. Open wound x1 month TECHNIQUE: Imaging protocol: Magnetic resonance imaging of the left lower extremity without and with contrast. Exam focused on the foot. Total images: 300 Contrast material: DOTAREM; Contrast volume: 18 ml; Contrast route: INTRAVENOUS (IV);? COMPARISON: No relevant prior studies available. FINDINGS: Bones/joints: T1 hypointensity/T2 STIR hyperintensity involving the 1st metatarsal head as well as proximal and distal phalanges of the 1st digit. Signal abnormality includes the ossicles at the level of the 1st metatarsal head. There is abnormal bony enhancement of these bones.? No significant fluid within the 1st metatarsal phalangeal joint to confirm septic arthritis. Partial bony destructive changes involving the proximal phalanx of the great toe. Soft tissues: There is subcutaneous stranding/inflammatory change surrounding these bony structures but no rim enhancing focal fluid collection. Overlying skin thickening with? irregularity corresponding with superficial ulceration. IMPRESSION: Osteomyelitis involving the 1st digit. Labs 03/24/23 06:04 03/24/23 06:04 Labs: Laboratory Results - last 24 hr 03/23/23 03/23/23 03/23/23 14:05 14:05 14:05 WBC Cancelled RBC Cancelled Hgb Cancelled Hct Cancelled MCV Cancelled MCH Cancelled MCHC Cancelled RDW Cancelled Plt Count Cancelled MPV Cancelled Immature Gran % Cancelled Neutrophils % Cancelled Band Neutrophils % Cancelled Lymphocytes % Cancelled Atypical Lymphs % Cancelled Monocytes % Cancelled Eosinophils % Cancelled Basophils % Cancelled Metamyelocytes % Cancelled Myelocytes % Cancelled Promyelocytes % Cancelled Other Cells % Cancelled Nucleated RBC % Cancelled Absolute Neutrophils Cancelled Absolute Lymphocytes Cancelled Absolute Monocytes Cancelled Absolute Eosinophils Cancelled Absolute Basophils Cancelled RBC Morphology Cancelled Polychromasia Cancelled Hypochromasia Cancelled Poikilocytosis Cancelled Basophilic Stippling Cancelled Anisocytosis Cancelled Microcytosis Cancelled Macrocytosis Cancelled Spherocytes Cancelled Tear Drop Cells Cancelled Ovalocytes Cancelled Stomatocytes Cancelled Garcia-[place] Bodies Cancelled Yao Cells/Echinocytes Cancelled Acanthocytes (Spur) Cancelled Schistocytes Cancelled PT INR APTT VBG Lactate 2.9 H* Sodium Cancelled Potassium Cancelled Chloride Cancelled Carbon Dioxide Cancelled Anion Gap Cancelled BUN Cancelled Creatinine Cancelled Est GFR (CKD-EPI 2020) Cancelled Glucose Cancelled Calcium Cancelled Total Bilirubin Cancelled AST Cancelled ALT Cancelled Alkaline Phosphatase Cancelled Total Protein Cancelled Albumin Cancelled 03/23/23 03/23/23 03/23/23 14:05 14:28 14:28 WBC 14.29 H RBC 4.96 Hgb 13.7 Hct 42.0 MCV 85 MCH 27.6 MCHC 32.6 RDW 14.3 H Plt Count 282 MPV 9.0 Immature Gran % 0.6 Neutrophils % 78.7 Band Neutrophils % Lymphocytes % 10.5 Atypical Lymphs % Monocytes % 8.7 Eosinophils % 1.0 Basophils % 0.5 Metamyelocytes % Myelocytes % Promyelocytes % Other Cells % Nucleated RBC % 0.0 Absolute Neutrophils 11.25 H Absolute Lymphocytes 1.50 Absolute Monocytes 1.24 H Absolute Eosinophils 0.14 Absolute Basophils 0.07 RBC Morphology Polychromasia Hypochromasia Poikilocytosis Basophilic Stippling Anisocytosis Microcytosis Macrocytosis Spherocytes Tear Drop Cells Ovalocytes Stomatocytes Garcia-[place] Bodies [place] Cells/Echinocytes Acanthocytes (Spur) Schistocytes PT Cancelled INR Cancelled APTT Cancelled VBG Lactate Sodium 140 Potassium 4.2 Chloride 104 Carbon Dioxide 25.7 Anion Gap 10.3 BUN 19 H Creatinine 1.5 H Est GFR (CKD-EPI 2020) 49.16 Glucose 156 H Calcium 8.7 Total Bilirubin 0.7 AST 7 L ALT 9 L Alkaline Phosphatase 68 Total Protein 7.9 Albumin 3.0 L 03/23/23 14:28 WBC RBC Hgb Hct MCV MCH MCHC RDW Plt Count MPV Immature Gran % Neutrophils % Band Neutrophils % Lymphocytes % Atypical Lymphs % Monocytes % Eosinophils % Basophils % Metamyelocytes % Myelocytes % Promyelocytes % Other Cells % Nucleated RBC % Absolute Neutrophils Absolute Lymphocytes Absolute Monocytes Absolute Eosinophils Absolute Basophils RBC Morphology Polychromasia Hypochromasia Poikilocytosis Basophilic Stippling Anisocytosis Microcytosis Macrocytosis Spherocytes Tear Drop Cells Ovalocytes Stomatocytes Garcia-[place] Bodies Yao Cells/Echinocytes Acanthocytes (Spur) Schistocytes PT 9.5 INR 0.9 APTT 30.0 VBG Lactate Sodium Potassium Chloride Carbon Dioxide Anion Gap BUN Creatinine Est GFR (CKD-EPI 2020) Glucose Calcium Total Bilirubin AST ALT Alkaline Phosphatase Total Protein Albumin Last Vital Signs Temp 36.5 C 03/23/23 13:40 Pulse 79 03/23/23 13:40 Resp 18 03/23/23 16:56 BP 141/57 H 03/23/23 13:40 Pulse Ox 100 03/23/23 13:40 Time Spent Time spent with Patient: >75 minutes Time was spent: preparing to see the patient(eg.review tests), obtaining and/or reviewing separately otained hiistory, ordering medications,tests, procedures, referring, communicating with other health school child care attendant, indepentently interpreting results, counseling the patient and care coordination
[2023-03-23 19:31] LABS: ESR 49 mm/hr (0-20)
[2023-03-23 19:37] LABS: C-Reactive Protein 21.48 mg/dL (0.0-0.3)
[2023-03-23] MEDS: Gabapentin 600 MG TAB PO (22:32)
[2023-03-23] MEDS: Temazepam 15 MG CAP 30 MG PO (23:31)
[2023-03-24] MEDS: Normal Saline 100 ML 200 ML (02:48)
[2023-03-24] MEDS: CEFEPIME 2 GM in Normal Saline 100 ML IVPB (02:48)
[2023-03-24] MEDS: Normal Saline 1,000 ML 125 ML IV (02:49)
[2023-03-24 03:30] VITALS: BP 114/62; PULSE 72; RESP 16; TEMP 37.3; O2SAT 98
[2023-03-24 06:54] LABS: HGB 12.9 g/dL (13.5-17.5); MCH 28.1 pg (27.0-33.0); MCHC 33.1 % (32.0-36.0); MCV 85 fL (80-95); MPV 9.5 fL (8.0-11.0); Platelet Count 278 10^3/uL (130-400); RBC 4.59 10^6/uL (4.36-5.78); RDW 14.4 % (11.8-14.1); RDW-SD 44.3 fL; WBC 12.46 10^3/uL (4.4-10.8)
[2023-03-24 07:11] VITALS: BP 134/62; PULSE 67; RESP 22; TEMP 37.6; O2SAT 98
[2023-03-24 07:24] LABS: ALT 9 U/L (16-63); AST 8 U/L (15-37); Albumin 2.6 g/dL (3.4-5.0); Alkaline Phosphatase 63 U/L (46-116); Anion Gap 10.9 mmol/L (3-11); BUN 16 mg/dL (7-18); Bilirubin, Total 0.8 mg/dL (0.2-1.0); CO2 23.1 mmol/L (21.0-32.0); CREATININE 1.3 mg/dL (0.70-1.30); Calcium 8.5 mg/dL (8.5-10.1); Chloride 105 mmol/L (98-107); Estimated GFR 58.37 (mL/min/1.73m2); Glucose 91 mg/dL (74-106); Potassium 3.7 mmol/L (3.5-5.1); Sodium 139 mmol/L (136-145); Total Protein 7.1 g/dL (6.4-8.2)
[2023-03-24 08:00] VITALS: BP 134/62; O2SAT 98
[2023-03-24] MEDS: Gabapentin 600 MG TAB PO (08:26)
[2023-03-24] MEDS: Atorvastatin 20 MG TAB PO (08:27)
[2023-03-24] MEDS: Lisinopril 5 MG TAB PO (08:27)
--- NOTE | 2023-03-24 08:28 | NUR.NOTE ---
Nursing Note: PT is NPO spoke with charge nurse okay to give morning meds with sips of water
[2023-03-24 09:01] VITALS: PULSE 79
--- NOTE | 2023-03-24 10:51 | DSE_ITS ---
Date of service: 03/24/23 Time of Service: 10:54 DS: Diagnosis Discharge Diagnosis (1) Cellulitis and abscess of foot: Status: Acute Asessment and Plan: Cefepime and vancomyin initiated in ED. No podiatry available at [facility] currently. I called Mercedes Patel in [facility] podiatry and they have scheduled an appointment for him on this coming Tu. The cellulitis (no abscess) is mild and will be treated with Levaquin 750mg daily. Levaquin also for the osteomyelitis. He will likely undergo an amputation of the left great toe. (2) Osteomyelitis of great toe of left foot: Status: Chronic Asessment and Plan: As above. (3) PVD (peripheral vascular disease): Status: Chronic Asessment and Plan: ESTELA's performed: ESTELA on left was 0.7. (4) Diabetes: Asessment and Plan: A1c 6.0 Cont home medications. (5) Hyperlipidemia: Status: Chronic Asessment and Plan: Not on a lipid lowering agent. Discharge Plan Disposition Patient Disposition: Home Condition: Stable Discharge Details Reason For Visit: Osteomyelitis, NIDDM Admit Date/Time: 03/23/23 19:00 Admit Provider: Gonzalez Horne Attending Provider: Gonzalez Horne Primary Care Provider: Tracie,Shoals Hospital Course Hospital Course: This is a 73-year-old gentleman who usually resides in [place] who presented to the outpatient clinic with a 1 to 2-week history of painful red right foot with eschar over the lateral aspect of the foot just at the base of the toe.? There is been no drainage.? He has had no fever or chills and denies any other systemic symptoms.? He is a diabetic and does have numbness of his feet chronically.? He also has an ulcer over the top of his left large toe which is deformed from a previous trauma and this is not draining but not healing.? The ED evaluation did reveal osteomyelitis in the left great toe.? He does have poor circulation with pulses only discovered by Doppler.? The patient thinks that he is here mostly for treatment of his right foot cellulitis which is more acute.?He repeatadly states that the R great toe has been like that for about a year. The patient is very [id number] and obtaining history and conversing was made difficult by this problem.?His was also involved in obtaining his history and ROS. See Diagnosis Podiatry appt with Dr Martines in [place] office this coming Tuesday. PCP f/u as per their arrangements. Home Meds and New Rx's Prescriptions: Continued metformin 1,000 mg Tablet 1,000 mg PO BID glipizide 10 mg Tablet 10 mg PO BID lisinopril 5 mg Tablet 5 mg PO DAILY aspirin 81 mg Capsule 81 mg PO DAILY gabapentin 600 mg Tablet 600 mg PO TID temazepam 30 mg Capsule 30 mg PO QHS PRN atorvastatin 20 mg Tablet 20 mg PO DAILY Jardiance 10 mg Tablet 10 mg PO DAILY Discharge Instructions Instructions: Cellulitis (DC) Stand Alone Forms: Nursing Discharge Form Referrals: Tulio Martines [ NON-[facility] STAFF PHYSICIAN] - 03/29/23 ([place] office.) Activity:: Activity as Tolerated Equipment/Supplies:: No Equipment Needed Diet:: carb controlled. Discharge Orders Discharge Orders: Discharge Order (Routine); Ordered 03/24/23 Ordered By: Ashish Cast Discharge Data Discharge Date/Time-TO BE ENTERED AT DEPARTURE: 03/24/23 12:30 DS: Summary Time Spent with Patient providing and/or coordinating discharge services: Greater than 30 minutes Status at Discharge Functional status at discharge: independent ambulation Overall status at discharge: patient is progressing back to baseline Mental Status: mental status grossly normal Speech and Movement: speech clear Mood: congruent mood Affect: normal affect Exam Narrative Exam Narrative: General: Patient appears older than stated age, he is hard of hearing. NAD HEENT: Sclera clear, MMM, poor dentition. Lungs: Fair aeration clear to auscultation percussion. Heart: Regular rate and rhythm with no murmurs Abdomen: Slightly obese contour, soft and nontender to palpation. Extremities: Upper extremities with good pulses and no clubbing or cyanosis. Lower extremities with atrophic, hyperpigmented skin over the ankles and feet with deformed toes including dry linear ulcer over the dorsal aspect of the left large toe at the base of the nail with a deformed nail and deformed IP joint with flexion contracture. Right foot with erythema over the dorsum of the foot with tenderness. There is a dry large scabbed over ulcer over the lateral aspect of the base of the fifth toe and area of the head of the fifth metatarsal. This is not fluctuant. Skin: Skin tears over the lower extremities as described, otherwise actinic changes over sun exposed areas Neuro: no focalizing motor deficits. Decreased sensation over both lower extremities from the knees down. No tremor. Psych: Flat affect. No abnormal thought processes. Psych Mental Status: mental status grossly normal Speech and Movement: speech clear Mood: congruent mood Affect: normal affect DS: Data Vitals/I&O Vitals and I&O: Vital Signs Temperature 37.6 C H 03/24/23 07:11 Temperature Source Tympanic 03/24/23 07:11 Pulse 79 03/24/23 09:01 Pulse Rhythm Regular 03/23/23 21:22 Pulse 71 03/23/23 18:12 Respiratory Rate 22 03/24/23 07:11 Respiratory Effort Normal, Non-Labored 03/23/23 21:22 Respiratory Depth Normal 03/23/23 21:22 Respiratory Pattern Normal 03/23/23 21:22 Blood Pressure 134/62 03/24/23 07:11 Blood Pressure Mean 91 03/23/23 18:33 Pulse Oximetry 98 03/24/23 07:11 Oxygen Delivery Method Room Air 03/24/23 07:11 Oxygen Flow Rate 0 03/24/23 07:11 Pain Level 10 03/24/23 07:11 Intake & Output 03/23/23 03/23/23 03/24/23 11:59 23:59 11:59 Intake Total 500 / 500 100 / 100 Output Total 100 / 100 750 / 750 Balance 400 / 400 -650 / -650 Weight 76.4 kg Intake: IV 500 / 500 100 / 100 Output: Urine 100 / 100 750 / 750 Other: Urine Color Yellow Straw Urine Appearance Clear Clear Urine Odor Sweet Sweet Voiding Methods Urinal Urinal Data Completed and Pending Labs on day of discharge: Labs from last 24 hours 03/24/23 03/24/23 03/23/23 06:04 06:04 19:30 WBC 12.46 H RBC 4.59 Hgb 12.9 L Hct 39.0 L MCV 85 MCH 28.1 MCHC 33.1 RDW 14.4 H Plt Count 278 MPV 9.5 Immature Gran % Neutrophils % Band Neutrophils % Lymphocytes % Atypical Lymphs % Monocytes % Eosinophils % Basophils % Metamyelocytes % Myelocytes % Promyelocytes % Other Cells % Nucleated RBC % Absolute Neutrophils Absolute Lymphocytes Absolute Monocytes Absolute Eosinophils Absolute Basophils RBC Morphology Polychromasia Hypochromasia Poikilocytosis Basophilic Stippling Anisocytosis Microcytosis Macrocytosis Spherocytes Tear Drop Cells Ovalocytes Stomatocytes [place] Bodies [place]ao Cells/Echinocytes Acanthocytes (Spur) Schistocytes ESR PT INR APTT VBG Lactate 1.0 Sodium 139 Potassium 3.7 Chloride 105 Carbon Dioxide 23.1 Anion Gap 10.9 BUN 16 Creatinine 1.3 Est GFR (CKD-EPI 2020) 58.37 Glucose 91 Hemoglobin A1c Calcium 8.5 Magnesium 2.0 Total Bilirubin 0.8 AST 8 L ALT 9 L Alkaline Phosphatase 63 C-Reactive Protein Total Protein 7.1 Albumin 2.6 L 03/23/23 03/23/23 03/23/23 14:28 14:28 14:28 WBC RBC Hgb Hct MCV MCH MCHC RDW Plt Count MPV Immature Gran % Neutrophils % Band Neutrophils % Lymphocytes % Atypical Lymphs % Monocytes % Eosinophils % Basophils % Metamyelocytes % Myelocytes % Promyelocytes % Other Cells % Nucleated RBC % Absolute Neutrophils Absolute Lymphocytes Absolute Monocytes Absolute Eosinophils Absolute Basophils RBC Morphology Polychromasia Hypochromasia Poikilocytosis Basophilic Stippling Anisocytosis Microcytosis Macrocytosis Spherocytes Tear Drop Cells Ovalocytes Stomatocytes [place] Bodies [place] Cells/Echinocytes Acanthocytes (Spur) Schistocytes ESR 49 H PT INR APTT VBG Lactate Sodium Potassium Chloride Carbon Dioxide Anion Gap BUN Creatinine Est GFR (CKD-EPI 2020) Glucose Hemoglobin A1c 6.0 H Calcium Magnesium Total Bilirubin AST ALT Alkaline Phosphatase C-Reactive Protein 21.48 H Total Protein Albumin 03/23/23 03/23/23 03/23/23 14:28 14:28 14:28 WBC 14.29 H RBC 4.96 Hgb 13.7 Hct 42.0 MCV 85 MCH 27.6 MCHC 32.6 RDW 14.3 H Plt Count 282 MPV 9.0 Immature Gran % 0.6 Neutrophils % 78.7 Band Neutrophils % Lymphocytes % 10.5 Atypical Lymphs % Monocytes % 8.7 Eosinophils % 1.0 Basophils % 0.5 Metamyelocytes % Myelocytes % Promyelocytes % Other Cells % Nucleated RBC % 0.0 Absolute Neutrophils 11.25 H Absolute Lymphocytes 1.50 Absolute Monocytes 1.24 H Absolute Eosinophils 0.14 Absolute Basophils 0.07 RBC Morphology Polychromasia Hypochromasia Poikilocytosis Basophilic Stippling Anisocytosis Microcytosis Macrocytosis Spherocytes Tear Drop Cells Ovalocytes Stomatocytes [place] Bodies [place] Cells/Echinocytes Acanthocytes (Spur) Schistocytes ESR PT 9.5 INR 0.9 APTT 30.0 VBG Lactate Sodium 140 Potassium 4.2 Chloride 104 Carbon Dioxide 25.7 Anion Gap 10.3 BUN 19 H Creatinine 1.5 H Est GFR (CKD-EPI 2020) 49.16 Glucose 156 H Hemoglobin A1c Calcium 8.7 Magnesium Total Bilirubin 0.7 AST 7 L ALT 9 L Alkaline Phosphatase 68 C-Reactive Protein Total Protein 7.9 Albumin 3.0 L 03/23/23 03/23/23 03/23/23 14:05 14:05 14:05 WBC Cancelled RBC Cancelled Hgb Cancelled Hct Cancelled MCV Cancelled MCH Cancelled MCHC Cancelled RDW Cancelled Plt Count Cancelled MPV Cancelled Immature Gran % Cancelled Neutrophils % Cancelled Band Neutrophils % Cancelled Lymphocytes % Cancelled Atypical Lymphs % Cancelled Monocytes % Cancelled Eosinophils % Cancelled Basophils % Cancelled Metamyelocytes % Cancelled Myelocytes % Cancelled Promyelocytes % Cancelled Other Cells % Cancelled Nucleated RBC % Cancelled Absolute Neutrophils Cancelled Absolute Lymphocytes Cancelled Absolute Monocytes Cancelled Absolute Eosinophils Cancelled Absolute Basophils Cancelled RBC Morphology Cancelled Polychromasia Cancelled Hypochromasia Cancelled Poikilocytosis Cancelled Basophilic Stippling Cancelled Anisocytosis Cancelled Microcytosis Cancelled Macrocytosis Cancelled Spherocytes Cancelled Tear Drop Cells Cancelled Ovalocytes Cancelled Stomatocytes Cancelled [place] Bodies Cancelled [place] Cells/Echinocytes Cancelled Acanthocytes (Spur) Cancelled Schistocytes Cancelled ESR PT Cancelled INR Cancelled APTT Cancelled VBG Lactate Sodium Cancelled Potassium Cancelled Chloride Cancelled Carbon Dioxide Cancelled Anion Gap Cancelled BUN Cancelled Creatinine Cancelled Est GFR (CKD-EPI 2020) Cancelled Glucose Cancelled Hemoglobin A1c Calcium Cancelled Magnesium Total Bilirubin Cancelled AST Cancelled ALT Cancelled Alkaline Phosphatase Cancelled C-Reactive Protein Total Protein Cancelled Albumin Cancelled 03/23/23 14:05 WBC RBC Hgb Hct MCV MCH MCHC RDW Plt Count MPV Immature Gran % Neutrophils % Band Neutrophils % Lymphocytes % Atypical Lymphs % Monocytes % Eosinophils % Basophils % Metamyelocytes % Myelocytes % Promyelocytes % Other Cells % Nucleated RBC % Absolute Neutrophils Absolute Lymphocytes Absolute Monocytes Absolute Eosinophils Absolute Basophils RBC Morphology Polychromasia Hypochromasia Poikilocytosis Basophilic Stippling Anisocytosis Microcytosis Macrocytosis Spherocytes Tear Drop Cells Ovalocytes Stomatocytes [place] Bodies Yao Cells/Echinocytes Acanthocytes (Spur) Schistocytes ESR PT INR APTT VBG Lactate 2.9 H* Sodium Potassium Chloride Carbon Dioxide Anion Gap BUN Creatinine Est GFR (CKD-EPI 2020) Glucose Hemoglobin A1c Calcium Magnesium Total Bilirubin AST ALT Alkaline Phosphatase C-Reactive Protein Total Protein Albumin 03/23/23 14:28 Blood Blood Culture - Pending 03/23/23 14:05 Blood Blood Culture - Pending Preliminary micro results at discharge 03/23/23 14:28 Blood Culture - Pending Blood 03/23/23 14:05 Blood Culture - Pending Blood PFSH All Active Problems Hyperlipidemia (Chronic) PVD (peripheral vascular disease) (Chronic) Cellulitis and abscess of foot (Acute) Osteomyelitis of great toe of left foot (Chronic) Osteomyelitis (Acute) Medical History Diabetes Kidney stones Prostate cancer Surgical History History of hernia repair Social History Smoking/Tobacco Use Status: Current every day Tobacco Type: cigarettes Smoking risk assessment performed?: Yes Alcohol Intake: current Substance use type: does not use Housing: house Do you feel safe at home: Yes Do you feel safe in your relationship?: Yes Time Spent with Patient Time Spent with Patient: 45-69 minutes Time was spent: preparing to see the patient(eg.review tests), obtaining and/or reviewing separately otained hiistory, referring, communicating with other health auto care center manager, indepentently interpreting results, counseling the patient and care coordination
--- NOTE | 2023-03-24 11:02 | NUR.NOTE ---
Telemetry monitoring device brought to ICU re: patient is refusing to wear it.
[2023-03-24 11:12] VITALS: BP 112/64; PULSE 77; RESP 18; TEMP 37.4; O2SAT 99
--- NOTE | 2023-03-24 11:14 | ANES.PREOP_ITS ---
General Info Height: 5 ft 9 in Weight: 76.4 kg Body Mass Index (BMI): 24.8 Surgical Procedure: Operation Date: 03/24/23 14:55 Proposed Procedure Side Surgeon p I&D, Great Toe Amputation Left Roe Wiggins MD Meds Allergies and Home Medications Allergies Allergy/AdvReac Type Severity Reaction Status Date / Time No Known Allergies Allergy Unverified 03/23/23 21:24 Home Medication Medication Instructions Recorded aspirin 81 mg capsule 81 mg PO DAILY 06/06/22 atorvastatin 20 mg tablet 20 mg PO DAILY 06/06/22 empagliflozin 10 mg tablet 10 mg PO DAILY 06/06/22 (Jardiance) gabapentin 600 mg tablet 600 mg PO TID 06/06/22 glipizide 10 mg tablet 10 mg PO BID 06/06/22 lisinopril 5 mg tablet 5 mg PO DAILY 06/06/22 metformin 1,000 mg tablet 1,000 mg PO BID 06/06/22 temazepam 30 mg capsule 30 mg PO QHS PRN 06/06/22 Current Visit Medications: Current Medications Generic Name Dose Route Start Last Admin Trade Name Freq PRN Reason Stop Dose Admin Acetaminophen 0 mg 03/23/23 19:34 Acetaminophen 325 Mg Tab PO Q4H PRN PRN Al Hydrox/Mg Hydrox/Simethicone 30 ml 03/23/23 19:34 Mylanta Suspension 30 Ml Cup PO Q2H PRN PRN Aspirin 81 mg 03/25/23 08:30 Aspirin E.C. 81 Mg Tabec PO DAILY [facility] Atorvastatin Calcium 20 mg 03/24/23 08:30 03/24/23 08:27 Atorvastatin 20 Mg Tab PO 20 mg DAILY [facility] Administration Dextrose 0 gm 03/23/23 19:40 Glucose Oral Gel 15 Gm/37.5 Gm Tube PO DIRECTED PRN Dextrose/Water 0 gm 03/23/23 19:40 Dextrose 50%-Water 25 Gm/50 Ml Syr IVP DIRECTED PRN Dimethicone/Zinc Oxide 0 gm 03/23/23 19:34 Albino Protect Cream 142 Gm Tube TP PRN PRN Docusate Sodium 100 mg 03/23/23 19:34 Docusate Sodium 100 Mg Cap PO TID PRN PRN Empagliflozin 10 mg 03/25/23 08:30 Empaglifozin 10 Mg Tab PO DAILY [facility] Gabapentin 600 mg 03/23/23 20:00 03/24/23 08:26 Gabapentin 600 Mg Tab PO 600 mg TID ANURAG Administration Gadoterate Meglumine 20 ml 03/23/23 15:15 03/23/23 15:12 Gadoterate Meglumine 20 Ml Vial IVP 04/22/23 23:59 18 ml DIRECTED ANURAG Administration Glipizide 10 mg 03/24/23 20:00 Glipizide 10 Mg Tab PO BID ANURAG Heparin Sodium (Porcine) 5,000 units 03/23/23 22:00 03/24/23 06:29 Heparin 5,000 Units/Ml Vial SC Not Given Q8H [facility]AG Sodium Chloride 1,000 mls @ 125 mls/hr 03/23/23 19:45 03/24/23 02:49 Saline 1000ml Bag IV 125 mls/hr INFUSION [facility] Administration Vancomycin/PEG/NADA/Lysine/Water 1.25 gm in 250 mls @ 166.667 mls/hr 03/24/23 16:00 Vancocin Injection IV Q24H [facility] Cefepime HCl 2 gm/ Sodium 100 mls @ 200 mls/hr 03/24/23 02:00 03/24/23 03:20 Chloride IVPB Infused Q12H [facility] Infusion Sodium Chloride 500 mls @ 0 mls/hr 03/24/23 09:46 Saline 500ml Bag IV PRN PRN As Directed IV Miscellaneous Supplies 1 each 03/24/23 10:00 Iv Access IV DIRECTED [facility] Insulin Aspart 0 units 03/23/23 22:00 03/24/23 08:26 Insulin Aspart 300 Units/3 Ml Pen SC Not Given AC & HS [facility] Protocol Lisinopril 5 mg 03/24/23 08:30 03/24/23 08:27 Lisinopril 5 Mg Tab PO 5 mg DAILY [facility] Administration Magnesium Hydroxide 30 ml 03/23/23 19:34 Milk Of Magnesia 30 Ml Cup PO DAILY PRN PRN Polyethylene Glycol 17 gm 03/23/23 19:34 Polyethylene Glycol 3350 17 Gm Packet PO DAILY PRN PRN Constipation Sodium Chloride 0 ml 03/24/23 10:00 Normal Saline Flush 10 Ml Syr IVP PRN PRN Temazepam 30 mg 03/23/23 21:27 03/23/23 23:31 Temazepam 15 Mg Cap PO 30 mg HS PRN PRN Administration PFS Active Problems Active Problems: Problem Status Onset Code Hyperlipidemia E78.5 PVD (peripheral vascular disease) I73.9 Cellulitis and abscess of foot L03.119, L02.619 Osteomyelitis of great toe of left foot M86.9 Osteomyelitis M86.9 Medical History Medical History Diabetes Kidney stones Prostate cancer Surgical History Surgical History History of hernia repair Tobacco Smoking/Tobacco Use Status: Current every day Tobacco Type: cigarettes Alcohol Alcohol Intake: current Substance Use Substance use type: does not use Vital Signs and Lab Results Vital Signs Most Recent Vital Signs in EMR: Most Recent Vital Signs Temp Pulse Resp BP Pulse Ox 37.4 C 77 18 112/64 99 03/24/23 11:12 03/24/23 11:12 03/24/23 11:12 03/24/23 11:12 03/24/23 11:12 Point of Care Results Point of Care Results: Finger Stick Blood Glucose 117 03/24/23 07:49 Lab Results 03/24/23 06:04 03/24/23 06:04 Blood Type / Crossmatch: No Data to Display Complete Blood Count: White Blood Count 12.46 10^3/uL (4.4-10.8) H 03/24/23 06:04 Red Blood Count 4.59 10^6/uL (4.36-5.78) 03/24/23 06:04 Hemoglobin 12.9 g/dL (13.5-17.5) L 03/24/23 06:04 Hematocrit 39.0 % (40.0-50.0) L 03/24/23 06:04 Platelet Count 278 10^3/uL (130-400) 03/24/23 06:04 Venous Blood Lactate 1.0 mmol/L (0.6-1.4) 03/23/23 19:30 Complete Metabolic Panel: Sodium 139 mmol/L (136-145) 03/24/23 06:04 Potassium 3.7 mmol/L (3.5-5.1) 03/24/23 06:04 Chloride 105 mmol/L (98-107) 03/24/23 06:04 Carbon Dioxide 23.1 mmol/L (21.0-32.0) 03/24/23 06:04 BUN 16 mg/dL (7-18) 03/24/23 06:04 Creatinine 1.3 mg/dL (0.70-1.30) 03/24/23 06:04 Est GFR (CKD-EPI 2020) 58.37 (mL/min/1.73m2) 03/24/23 06:04 Magnesium 2.0 mg/dL (1.8-2.4) 03/24/23 06:04 Calcium 8.5 mg/dL (8.5-10.1) 03/24/23 06:04 Albumin 2.6 g/dL (3.4-5.0) L 03/24/23 06:04 Glucose 91 mg/dL (74-106) 03/24/23 06:04 Hemoglobin A1c 6.0 % (<5.7) H 03/23/23 14:28 C-Reactive Protein 21.48 mg/dL (0.0-0.3) H 03/23/23 14:28 Liver Function Panel: Alanine Aminotransferase (ALT/SGPT) 9 U/L (16-63) L 03/24/23 06 :04 Aspartate Amino Transf (AST/SGOT) 8 U/L (15-37) L 03/24/23 06:0 4 Coagulation Panel: INR International Normalized Ratio 0.9 (0.9-1.1) 03/23/23 14:2 8 Prothrombin Time 9.5 sec (9.3-11.0) 03/23/23 14:28 Activated Partial Thromboplast Time 30.0 sec (21.5-31.9) 14:28 Cardiac Panel: No Data to Display Arterial Blood Gas: No Data to Display Venous Blood Gas: No Data to Display Pancreas Panel: No Data to Display Thyroid Panel: No Data to Display Infectious Disease: No Data to Display Blood Cultures: No Data to Display Toxicology Panel: No Data to Display Imaging and Studies Imaging and Studies Study information below may be from another EMR and interpreted by another provider. Please see original notes in EMR for more complete details. EKG Summary: 06/19: sinus. Anesthesia Assessment and Plan Anesthesia History Personal History: No History of Anesthesia Complications Family History: No Family History of Anesthesia Complications Anesthesia Plan Resuscitation Status: Full Code Preoperative Comments:: 73 yo male with cellulitis, abscess, and osteo for toe amputation. Sig PMHx: HTN, DM, PVD, daily tobacco, occ EtOH.
--- NOTE | 2023-03-24 16:02 | CMDISCH_ITS ---
Date of service: 03/24/23 Time of Service: 16:02 LACE Index Scoring Tool Questions: Length of Stay (in days): 1 Was the patient admitted via the E.D.?: Yes Comorbidities: PVD E.D. Visits: 1 Answers: Total Score: 6 Risk of Readmission: Low Risk Care Management Discharge Plan Reason for Hospitalization: Osteomylitis Discharge Plan: Mayco is discharged home via private vehicle with family. He will follow up with community providers and his discharge plan of care as instructed. He will seen Podiatry in [place] Tuesday, as scheduled. Follow up with PCP as discussed. No VNA services are ordered prior to discharge. Patient/Family Education Needs: Review discharge instructions, limitations and plan to follow up with community providers. Discuss ask me three.
== END 2023-03-24 12:30 | disposition home or self-care (01) | DRG 638 ==
LOC: ER 19:52 → MS 21:13
PROVIDERS: Emergency Medicine; Student in an Organized Health Care Education/Training Program; Admitting Provider Family Medicine; Emergency Provider Student in an Organized Health Care Education/Training Program; Visit Provider Family Medicine
DX: E11.69 Type 2 diabetes mellitus with other specified complication (principal); L03.115 Cellulitis of right lower limb; M86.672 Other chronic osteomyelitis, left ankle and foot; E11.621 Type 2 diabetes mellitus with foot ulcer; E78.5 Hyperlipidemia, unspecified; I73.9 Peripheral vascular disease, unspecified; F17.210 Nicotine dependence, cigarettes, uncomplicated; C61 Malignant neoplasm of prostate; E11.42 Type 2 diabetes mellitus with diabetic polyneuropathy; H91.90 Unspecified hearing loss, unspecified ear; L97.529 Non-pressure chronic ulcer of other part of left foot with unspecified severity; Z79.85 Long-term (current) use of injectable non-insulin antidiabetic drugs; L97.519 Non-pressure chronic ulcer of other part of right foot with unspecified severity
CPT/HCPCS: 36415; 80053; 85027; 85652; 87040; 87077; 96365; 96366; 96368; 99223; 99285; 73630; 73720; 83036; 83605; 83735; 85025; 85610; 85730; 86140; 87186; 99239

== ENCOUNTER 2023-04-18 08:51 | Emergency (ER) | payer MEDICARE, SELFPAY ==
[2023-04-18 08:57] VITALS: BP 100/42; RESP 16
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
--- OUTSIDE RECORDS SUMMARY | 2023-04-18 08:57 | XMS_ITS | Patient Health Record ---
Author Name Unknown Organization [facility] Address [address] [place] [address] Care Team Providers Care Oim Architect Name Role Phone Lamont Fields Primary Care Provider Gonzalez Martin Unavailable Unavailable Landy Perkins Unavailable [phone] ALLERGIES No Known Allergies RESULTS Component Value Reference Range Notes Comp. Metabolic Panel (14), Fasting Reviewed date:07/14/2022 03:11:17 PM Interpretation: Performing Lab:[facility], [address] [place] [address], Phone - [phone], Director - Darwin Notes/Report: CBC With Differential/Platel et Reviewed date:07/14/2022 03:11:23 PM Interpretation: Performing Lab:[facility], [address] [place] [address], Phone - [phone], Director - Darwin Notes/Report: Hemoglobin A1c, Fasting Reviewed date:07/14/2022 03:11:39 PM Interpretation: Performing Lab:[facility], [address] [place] [address], Phone - [phone], Director - Darwin Notes/Report: . Prediabetes: 5.7 - 6.4 Diabetes: >6.4 Glycemic control for adults with diabetes: <7.0 C-Reactive Protein, Quant Reviewed date:07/14/2022 03:11:58 PM Interpretation: Performing Lab:[facility], [facility] [address] [facility], Phone - [phone], Director - Darwin Notes/Report: ESR Reviewed date:07/14/2022 03:12:02 PM Interpretation: Performing Lab:[facility], [facility], Phone - [phone], Director - Darwin Notes/Report: TSH Reviewed date:11/13/2022 03:51:49 PM Interpretation: Performing Lab:[facility], [facility], Phone - [phone], Director - Darwin Notes/Report: Lipid Panel With LDL/HDL Rat io Reviewed date:11/13/2022 03:51:53 PM Interpretation: Performing Lab:[facility], [address] [place] [address], Phone - [phone], Director - Darwin Notes/Report: LDL/HDL Ratio Men Women 1/2 Avg.Risk 1.0 1.5 Avg.Risk 3.6 3.2 2X Avg.Risk 6.2 5.0 3X Avg.Risk 8.0 6.1 Microalb/Creat Ratio, Randm Ur Reviewed date:11/13/2022 03:51:56 PM Interpretation: Performing Lab:[facility], [address] [place] [address], Phone - [phone], Director - Darwin Notes/Report: Normal: 0 - 29 Moderately increased: 30 - 300 Severely increased: >300 Comp. Metabolic Panel (14), Fasting Reviewed date:11/13/2022 03:52:00 PM Interpretation: Performing Lab:[facility], [address] [place] [address], Phone - [phone], Director - Darwin Notes/Report: CBC With Differential/Platel et Reviewed date:11/13/2022 03:52:04 PM Interpretation: Performing Lab:[facility], [facility], Phone - [phone], Director - Darwin Notes/Report: Prostate-Specific Ag, Serum Reviewed date:11/13/2022 03:52:07 PM Interpretation: Performing Lab:[facility], [facility], Phone - [phone], Director - Darwin Notes/Report: Raul ECLIA methodology. . According to the [employer] [employer], Serum PSA should decrease and [...] the presence or absence of malignant disease. Hemoglobin A1c, Fasting Reviewed date:11/13/2022 03:52:10 PM Interpretation: Performing Lab:[facility], [address] [facility], Phone - [phone], Director - Darwin Notes/Report: . Prediabetes: 5.7 - 6.4 Diabetes: >6.4 Glycemic control for adults with diabetes: <7.0 REASON FOR REFERRAL Reason needs eval with foot and ankle ortho for evaluation of chronic toe ulcer. Podiatry has been seeing him, and done nothing in last 6 months. Diagnosis 1 Non-pressure chronic ulcer of other part of left foot limited to breakdown of skin (L97.521) Referral Organization [facility]. Referring Provider First Name Lamont Referring Provider Last Name Donnie Referring Provider [facility] ariella Referred Provider Lelia Flores Referred Provider Specialty Orthopedic S urgery Procedure 1 Office Visit, New Pt ., Level 4 (05172) Procedure 2 INJ METHYLPRDNISOLON E ACTAT 40 MG (J1030) Procedure 3 INJ TENDON SHEATH/LI GAMENT (47802) Procedure 4 DRAIN/INJ JOINT/BURS A W/US () Procedure 5 X-RAY EXAM OF LOWER LEG (87171) Procedure 6 X-RAY EXAM OF ANKLE (60151) Procedure 7 X-RAY EXAM OF FOOT ( 95643) General Notes Carole Mckeon 022 09:43:01 AM >Auth and notes fax to office... LVM via pt phone with appt info.; Referral Priority Routine Referral Appointment Date 06/23/2022 Reason F/U Diagnosis 1 Displaced fracture o f distal phalanx of left great toe, initial encounter for closed fracture (S92.422A) Diagnosis 2 Osteonecrosis due to previous trauma, left toe(s) (M87.278) Referral Organization [facility]. Referring Provider First Name Gonzalez Referring Provider Last Name Mario Referring Provider Speciality Family Med icine Referred Provider [facility], C are Referred Provider Specialty Orthopedic S urgery Procedure 1 Office Visit, Est Pt ., Level 3 (78732) General Notes Mike Carole 022 05:01:55 PM >Per pt stated that was [...] CARLOS., Elena Rocha 08/03/2022 03:03:05 PM >fax auth;Assign To :Aj Parker; Clinical Notes Fax number Referral Priority Routine MEDICATIONS Medication SIG (Take, Route, Frequency, Duration) Notes Start Date End Date Status Lisinopril 5 MG TAKE 1 TABLET BY AMAN TH EVERY DAY for 90 Active metFORMIN HCl 1000 MG 1 tablet with a me al Orally twice a day for 90 days Active Temazepam 15 MG 1 capsule at bedtime as needed Orally at bedtime for 30 days PDMP done 02/24/2023 Active glipiZIDE 10 MG 1 tablet Oral BID fo r 90 days Active Jardiance 10 MG 1 tablet Orally Once a day for 90 days 12/04/2021 Active Atorvastatin Calcium 20 MG Oral for 90 Days Active Gabapentin 600 MG TAKE 1 TABLET BY AMAN TH EVERY MORNING AND 2 TABLETS IN THE EVENING. 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 to breakdown of skin (L97.521) Active confirmed 399935499 Problem Osteonecrosis due to previous trauma, left toe(s) (M87.278) Active confirmed 705302590513787 Problem Proteinuria, unspecified (R80.9) Active confirmed 87222127 Problem 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.29) Active confirmed 90847411 Problem Type 2 diabetes mellitus with diabetic peripheral angiopathy without gangrene, without long-term current use of insulin (E11.51) Active confirmed 598155005 Problem History of prostate cancer (Z85.46) Active confirmed History of malignant neoplasm of prostate (827478081) Problem PAD (peripheral artery disease) (I73.9) Active confirmed 821425065 Problem Sensorineural hearing loss (SNHL) of both ears (H90.3) Active confirmed 421533985 Problem Tobacco abuse disorder (Z72.0) Active confirmed 908612537 Problem SVT (supraventricular tachycardia) (I47.1) Active confirmed 8803870 Problem HYPERLIPIDEMIA ASSOCIATED WITH TYPE 2 DIABETES MELLITUS (E11.69) Active confirmed Complicati on due to diabetes mellitus type 2 (39976527819951) Problem HYPERLIPIDEMIA, MIXED (E78.2) Active confirmed Mixed hyperlipidemia (765820534) Problem Type 2 diabetes mellitus with diabetic neuropathy (E11.40) Active confirmed Diabetic peripheral neuropathy associated with type 2 diabetes mellitus (2797191208416) Problem Abdominal aortic aneurysm (AAA) without rupture, unspecified part (I71.40) Active confirmed 25424715 VITAL SIGNS Heart Rate 100 /min 11/16/2022 Temperature 97.0 degrees Fahrenheit 11/16/2022 Respiratory Rate 20 /min 11/16/2022 Oximetry 97 % 11/16/2022 Height 69 in 11/16/2022 Weight 170 lbs 11/16/2022 BMI 25.1 kg/m2 11/16/2022 Encounters Encounter Location Date Provider Diagnosis [facility] [address] [place] [address] 05/24/2022 [facility] [address] [facility] [address] [place] [address] 06/14/2022 Lamont Fields [facility] [address] [address] 06/16/2022 Lamont Fields Non-pressure chronic ulcer of other part of left foot limited to breakdown of skin L97.521 ; Abdominal aortic aneurysm (AAA) without rupture, unspecified part I71.40 ; Type 2 diabetes mellitus with foot ulcer E11.621 ; PAD (peripheral artery disease) I73.9 ; Type 2 diabetes mellitus with diabetic neuropathy E11.40 ; Sensorineural hearing loss (SNHL) of both ears H90.3 ; History of prostate cancer Z85.46 ; HYPERLIPIDEMIA ASSOCIATED WITH TYPE 2 DIABETES MELLITUS E11.69 ; HYPERLIPIDEMIA, MIXED E78.2 ; Type 2 diabetes mellitus with diabetic peripheral angiopathy without gangrene, without long-term current use of insulin E11.51 ; Primary insomnia F51.01 ; Elevated blood pressure reading in office without diagnosis of hypertension R03.0 ; Tobacco abuse disorder Z72.0 ; Proteinuria, unspecified R80.9 ; Type 2 diabetes mellitus with other diabetic kidney complication E11.29 and Immunization not carried out because of patient refusal Z28.21 [facility] [address] [address] 06/29/2022 Lamont Fields Primary insomnia F51 .01 [facility] [address] [address] 07/13/2022 Lamont Fields Non-pressure chronic ulcer of other part of left foot limited to breakdown of skin L97.521 ; Osteonecrosis due to previous trauma, left toe(s) M87.278 and Type 2 diabetes mellitus with diabetic neuropathy E11.40 [facility] [address] [address] 10/19/2022 Lamont Fields External hemorrhoid K64.4 [facility] [address] [address] 11/01/2022 Lamont Fields Type 2 diabetes mellitus with diabetic peripheral angiopathy without gangrene, without long-term current use of insulin E11.51 [facility] [address] [address] 11/12/2022 Lamont Fields Type 2 diabetes mellitus with diabetic neuropathy E11.40 ; History of prostate cancer Z85.46 and HYPERLIPIDEMIA ASSOCIATED WITH TYPE 2 DIABETES MELLITUS E11.69 [facility] [address] [address] 11/16/2022 Lamont Fields HYPERLIPIDEMIA ASSOCIATED WITH TYPE 2 DIABETES MELLITUS E11.69 ; Type 2 diabetes mellitus with diabetic neuropathy E11.40 ; HYPERLIPIDEMIA, MIXED E78.2 ; History of prostate cancer Z85.46 ; Type 2 diabetes mellitus with diabetic peripheral angiopathy without gangrene, without long-term current use of insulin E11.51 ; Primary insomnia F51.01 ; BMI 25.0-25.9,adult Z68.25 ; SVT (supraventricular tachycardia) I47.1 ; PAD (peripheral artery disease) I73.9 ; Tobacco abuse disorder Z72.0 ; Abdominal aortic aneurysm (AAA) without rupture, unspecified part I71.40 ; Non-pressure chronic ulcer of other part of left foot limited to breakdown of skin L97.521 ; Type 2 diabetes mellitus with foot ulcer E11.621 ; Sensorineural hearing loss (SNHL) of both ears H90.3 ; Proteinuria, unspecified R80.9 ; Type 2 diabetes mellitus with other diabetic kidney complication E11.29 ; Osteonecrosis due to previous trauma, left toe(s) M87.278 ; Encounter for general adult medical examination with abnormal findings Z00.01 ; Encounter for screening for depression Z13.31 ; Counseling, unspecified Z71.9 and Immunization not carried out because of patient refusal Z28.21 [facility] [address] [address] 11/23/2022 Landy Perkins [facility] [address] 11/23/2022 Lamont Fields [facility] [address] 11/24/2022 Landy Perkins [facility] [address] 02/23/2023 Lamont Fields [facility] [address] 02/24/2023 Lamont Fields [facility] [address] 03/30/2023 Lamont Donnie ASSESSMENTS Encounter Date Diagnosis Assessment Notes Treatment Notes Treatment Clinical Notes 10/19/2022 External hemorrhoid (ICD-10 - K64.4) he treats this with Prep H, sitz baths, avoid pushing with BM this will shrink over days. 06/29/2022 Primary insomnia (ICD-10 - F51.01) 07/13/2022 Non-pressure chronic ulcer of other part [...] forward with going to foot and ankle. 11/16/2022 HYPERLIPIDEMIA ASSOCIATED WITH TYPE 2 DIABETES [...] current use of insulin (ICD-10 - E11.51) 06/16/2022 Non-pressure chronic ulcer of other part [...] will not do, keep BP under control. 06/16/2022 Type 2 diabetes mellitus with foot ulcer (ICD-10 - E11.621) see above discussion. He has had over 6 months., podiatry not helping. 11/12/2022 History of prostate cancer (ICD-10 - Z85.46) 11/16/2022 HYPERLIPIDEMIA, MIXED (ICD-10 - E78.2) Continue atorvastatin, 07/13/2022 Type 2 diabetes mellitus with diabetic neuropathy (ICD-10 - E11.40) 11/16/2022 History of prostate cancer (ICD-10 - Z85.46) Refer to urology for follow up surveillance 11/12/2022 HYPERLIPIDEMIA ASSOCIATED WITH TYPE 2 DIABETES MELLITUS (ICD-10 - E11.69) 06/16/2022 PAD (peripheral artery disease) (ICD-10 - I73.9) ulcer as above. will [...] - F51.01) Renew temazepam, PDMP checked 06/16/2022 Sensorineural hearing loss (SNHL) of both ears (ICD-10 - H90.3) has hearing aides, but does not like to use them, tries to mouth read. 06/16/2022 History of prostate cancer (ICD-10 - Z85.46) 11/16/2022 BMI 25.0-25.9,adult (ICD-10 - Z68.25) 06/16/2022 HYPERLIPIDEMIA ASSOCIATED WITH TYPE 2 DIABETES MELLITUS (ICD-10 - E11.69) has hypercholesterolemia and DM DM is controlled at present, keep same meds. keep with statin. 11/16/2022 SVT (supraventricular tachycardia) (ICD-10 - I47.1) patient with ECG proven [...] the EMS wagon. I called down to [facility] to talk with Dr Lombardo about the events, Supervisor [employer] came back into office to tell me [...] know he would not be coming. 06/16/2022 HYPERLIPIDEMIA, MIXED (ICD-10 - E78.2) as above. 11/16/2022 PAD (peripheral artery disease) (ICD-10 - I73.9) attempted to do ESTELA [...] with surgical eval from foot and ankle 06/16/2022 Primary insomnia (ICD-10 - F51.01) on sed hyponotic daily 11/16/2022 Abdominal aortic aneurysm (AAA) without rupture, unspecified part (ICD-10 - I71.40) see CT scan reports. 06/16/2022 Elevated blood pressure reading in office without diagnosis of hypertension (ICD-10 - R03.0) normotensive now, and was hypotensive in ER. keep hydrated. 11/16/2022 Non-pressure chronic ulcer of other part of left foot limited to breakdown of skin (ICD-10 - L97.521) the nail is still in haling, no active ulcer at present. 11/16/2022 Type 2 diabetes mellitus with foot ulcer (ICD-10 - E11.621) healing ulcer as above. 06/16/2022 Tobacco abuse disorder (ICD-10 - Z72.0) needs to quit smoking for his health, and peripheral circulation. 06/16/2022 Proteinuria, unspecified (ICD-10 - R80.9) has microalbunuria, on RON level as above in lab. 11/16/2022 Sensorineural hearing loss (SNHL) of both ears (ICD-10 - H90.3) not simone hearing aides. 11/16/2022 Proteinuria, unspecified (ICD-10 - R80.9) see [...] TREATMENT Pending Test Test Name Order Date Sedimentation Coy-Inezren 07/13/2022 Insurance Providers Payer Name Payer Address Payer Phone Subscriber Number Group Number Insured Name Patient Relationship to Insured Coverage Start Date Coverage End Date [employer] [address] [address] [place] [address] [id number] ADIS TERAN Self - patient is the insured 2 MEDICAL (GENERAL) HISTORY Medical History History ICD Code Type 2 diabetes mellitus with diabetic n europathy E11.40 HYPERLIPIDEMIA ASSOCIATED WITH TYPE 2 DI ABETES MELLITUS E11.69 HYPERLIPIDEMIA, MIXED E78.2 HISTORY OF PROSTATE CANCER Z85.46 Surgical History Surgery Date(Month/Year) cataract-lens implants 2019 Hospitalization History Reason Date(Month/Year) PROSTATE SEEDS 2017 Left hallux fracture 11/2021
--- OUTSIDE RECORDS SUMMARY | 2023-04-18 08:58 | XMS_ITS | Continuity of Care Document ---
Author Name Unknown Organization [facility] Address [address] [place] [address]- Care Team Providers Care Technical Analyst Name Role Phone MARLEN BARNEY Primary Care Physician Encounter [facility] [email or web address] [id number] Date(s): 11/24/21 - 11/24/21 [facility] [address] [place], [place] [address] Encounter Diagnosis Fracture of great toe, left, open(Discharge Diagnosis) - 11/24/21 Avulsion fracture(Discharge Diagnosis) - 11/24/21 Diabetic neuropathy(Discharge Diagnosis) - 11/24/21 Laceration of nail bed of toe(Discharge Diagnosis) - 11/24/21 Pain in left toe(s)(Final) - 11/24/21 Laceration without foreign body of left great toe without damage to nail, initial encounter(Final) - 11/24/21 Laceration without foreign body of left great toe without damage to nail, initial encounter(Final) - 11/24/21 Displaced fracture of distal phalanx of left great toe, initial encounter for open fracture(Final) - 11/24/21 Other specified disorders of bone density and structure, left ankle and foot (Final) - 11/24/21 Essential (primary) hypertension(Final) - 11/24/21 Type 2 diabetes mellitus without complications(Final) - 11/24/21 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 oral hypoglycemic drugs(Final) - 11/24/21 Other ocean transportation intermediary (current) drug therapy(Final) - 11/24/21 Striking against or struck by other objects, initial encounter(Final) - 11/24/[address] in unspecified non-institutional (private) residence as the place of occurrence of the external cause(Final) - 11/24/21 Discharge Disposition: HR Attending Physician: YESICA ANGELES DO Admitting Physician: YESICA ANGELES DO Allergies, Adverse Reactions, Alerts No Known Allergies Assessment and Plan Extracted from: Title:Toe injury - Major Author:EUFEMIA ANGELES DO Date:11/24/21 Impression and Plan Diagnosis Fracture of great toe, left, open (AAG88-SP S92.402B, Discharge, Medical) Laceration of nail bed of toe (HGD81-DU S91.219A, Discharge, Medical) Diabetic neuropathy (XGF72-DN E11.40, Discharge, Medical) Avulsion fracture (EVH67-VP T14.8XXA, Discharge, Medical) Plan Condition: Stable. Disposition: Discharged: to home. Prescriptions: Launch prescriptions Pharmacy: cephalexin (Eqv-Keflex) 500 mg oral capsule (Prescribe): 500 mg, 1 cap, PO, four times a day, for 5 day(s), 20 cap, 0 Refill(s). Patient was given the following educational materials: Laceration, Foot: All Closures, Open Toe Fracture (Child). Follow up with: NOE MARTÍNEZ In 2 days 11/26/2021. Counseled: Patient, Regarding diagnosis, Regarding diagnostic results, Regarding treatment plan, Regarding prescription, Patient indicated understanding of instructions. Functional Status 11/24/21 Assistive Device None Gait Unable to assess Immunizations Given and Recorded Vaccine Date Status Refusal Reason tetanus-diphth toxoids (Td) adult/adol 11/24/21 Gi nikolay Medications atorvastatin 20 mg oral tablet 20 mg = 1 tab, PO, Daily, # 30 tab, 0 Refill(s), [facility] #[id number], 172.72, cm, 10/14/20 9:56:00 EST, CLINICALHEIGHT, 91.364, kg, 10/14/20 9:56:00 EST, CLINICALWEIGHT Start Date: 10/14/20 Stop Date: 11/13/20 Status: Ordered gabapentin 600 mg oral tablet 600 mg = 1 tab, PO, Daily, 0 Refill(s) Start Date: 11/24/21 Status: Ordered gabapentin 600 mg oral tablet 1,200 mg = 2 tab, PO, HS, 0 Refill(s) Start Date: 11/24/21 Status: Ordered gabapentin 600 mg oral tablet 600 mg = 1 tab, PO, Daily, 600mg am 1200mg pm, 0 Refill(s) Start Date: 01/12/18 Status: Ordered glipiZIDE 10 mg oral tablet 10 mg = 1 tab, PO, BID, 0 Refill(s) Start Date: 11/24/21 Status: Ordered glipiZIDE 5 mg oral tablet 10 mg = 2 tab, PO, Daily, # 60 tab, 0 Refill(s), [facility] #[id number], 172.72, cm, 10/14/20 9:56:00 EST, CLINICALHEIGHT, 91.364, kg, 10/14/20 9:56:00 EST, CLINICALWEIGHT Start Date: 10/14/20 Stop Date: 11/13/20 Status: Ordered metFORMIN 850 mg oral tablet 850 mg = 1 tab, PO, BID, # 60 tab, 0 Refill(s), [facility] #[id number], 172.72, cm, 10/14/20 9:56:00 EST, CLINICALHEIGHT, 91.364, kg, 10/14/20 9:56:00 EST, CLINICALWEIGHT Start Date: 10/14/20 Stop Date: 11/13/20 Status: Ordered Senokot 8.6 mg oral tablet 17.2 mg = 2 tab, PO, HS, PRN as needed for constipation, # 20 tab, 0 Refill(s) Start Date: 10/14/20 Status: Ordered temazepam 15 mg =, PO, HS, 0 Refill(s) Start Date: 07/06/17 Status: Ordered Mental Status 11/24/21 Level of Consciousness Awake Orientation Oriented X3 Problem List Condition Effective Dates Status Health Status Inform ant Diabetes mellitus(Confirmed) Active Hard of hearing(Confirmed) Active Kidney stone(Confirmed) 1 Active Neuropathy(Confirmed) Active Prostate cancer(Confirmed) Active 1none since 2015 Diagnosis Diagnosis Type Effective Dates Health Status Clinical Service Informant UC - Foot/Toe Injury Reason For Visit 11/24/21 Non-Specified Toe injury - Major Reason For Visit 11/24/21 Emergency medicine Fracture of great toe, left, open Discharge Diagnosis 11/24/21 Non-Specified Diabetic neuropathy Discharge Diagnosis 11/24/21 Non-Specified Avulsion fracture Discharge Diagnosis 11/24/21 Non-Specified Laceration of nail bed of toe Discharge Diagnosis 11/24/21 Non-Specified Procedures Procedure Date Related Diagnosis Body Site Status PhlebCharge 11/24/21 Completed CYSTOSCOPY 1 01/12/18 Completed IMPLANT RADIOACTIVE SEEDS 2 01/12/18 Completed Seed implantation into prostate 01/12/18 Completed HERNIORRHAPHY INGUINAL (Right) 3 07/06/17 Completed Ankle 4 Completed Kidney stone Completed 1auto-populated from documented surgical case 2auto-populated from documented surgical case 3auto-populated from documented surgical case 4left ankle surgeries after fall from 3rd story roof Results Laboratory List Name Date UA BH w/reflex Urine Culture 11/24/21 Automatic Differential 11/24/21 Basic Metabolic Panel 11/24/21 CBC w/Auto Diff 11/24/21 Estimated Glomerular Filtration Rate 10/28 05/20 Most recent to oldest [Reference Range]: 1 eGFR () [>=60 mL/min/1.7 3m2] >60 mL/min/1.73m2 (11/24/21 2:47 PM) eGFR( NonAfrican Guamanian) [>=60 mL/min/ 1.73m2] >60 mL/min/1.73m2 (11/24/21 2:47 PM) IG% [0.0-1.0 %] 0.3 % (11/24/21 2:47 PM) IG Abs [0.00-0.11 _X10^3/uL] 0.03 _X10^3 /uL (11/24/21 2:47 PM) Nucleated RBC ABS [>=0.00 _X10^3/uL] 0.0 0 _X10^3/uL (11/24/21 2:47 PM) Nucleated RBC% [>=0.0 %] 0.0 % (11/24/21 2:47 PM) Hemolysis None (11/24/21 2:47 PM) Glucose Lvl [83-110 mg/dL] 240 mg/dL *H* (11/24/21 2:47 PM) BUN [8-26 mg/dL] 16 mg/dL (11/24/21 2:47 PM) Creatinine [0.8-1.2 mg/dL] 1.2 mg/dL (11/24/21 2:47 PM) Sodium Lvl [136-145 mmol/L] 139 mmol/L (11/24/21 2:47 PM) Potassium Lvl [3.5-5.1 mmol/L] 4.1 mmol/ L (11/24/21 2:47 PM) Chloride [98-107 mmol/L] 106 mmol/L (11/24/21 2:47 PM) CO2 [23-31 mmol/L] 22 mmol/L *L* (11/24/21 2:47 PM) Anion Gap [5-14] 11 (11/24/21 2:47 PM) Calcium Lvl [8.8-10.0 mg/dL] 8.9 mg/dL (11/24/21 2:47 PM) WBC [4.00-11.00 _X10^3/uL] 8.81 _X10^3/u L (11/24/21 2:47 PM) RBC [4.30-5.80 _X10^6/uL] 5.72 _X10^6/uL (11/24/21 2:47 PM) Hemoglobin [13.0-17.3 g/dL] 17.1 g/dL (11/24/21 2:47 PM) Hematocrit [38.0-52.0 %] 49.8 % (11/24/21 2:47 PM) MCV [78.0-100.0 fl] 87.1 fl (11/24/21 2:47 PM) MCH [26.0-34.0 pg] 29.9 pg (11/24/21 2:47 PM) MCHC [31.0-37.0 g/dL] 34.3 g/dL (11/24/21 2:47 PM) Platelet [140-400 _X10^3/uL] 175 _X10^3/ uL (11/24/21 2:47 PM) MPV [9.4-12.4 fl] 9.9 fl (11/24/21 2:47 PM) RDW [10.8-14.2 %] 13.6 % (11/24/21 2:47 PM) Neut % [37.0-80.0 %] 61.7 % (11/24/21 2:47 PM) Lymph % [20.0-45.0 %] 27.1 % (11/24/21 2:47 PM) Big Stone % [1.0-13.0 %] 7.3 % (11/24/21 2:47 PM) Eos % [0.0-6.0 %] 2.5 % (11/24/21 2:47 PM) Baso % [0.0-2.0 %] 1.1 % (11/24/21 2:47 PM) Neut Abs [1.80-7.70 _X10^3/uL] 5.43 _X10 ^3/uL (11/24/21 2:47 PM) Lymph Abs [1.00-4.80 _X10^3/uL] 2.39 _X1 0^3/uL (11/24/21 2:47 PM) Big Stone Abs [0.10-1.00 _X10^3/uL] 0.64 _X10 ^3/uL (11/24/21 2:47 PM) Eos Abs [0.00-0.70 _X10^3/uL] 0.22 _X10^ 3/uL (11/24/21 2:47 PM) Baso Abs [0.00-0.30 _X10^3/uL] 0.10 _X10 ^3/uL (11/24/21 2:47 PM) U Color Yellow (11/24/21 3:54 PM) U Appearance Clear (11/24/21 3:54 PM) U Sp Gravity_ [1.015-1.025] 1.022 (11/24/21 3:54 PM) U pH [5.0-7.5] 5.5 (11/24/21 3:54 PM) U Protein [Negative mg/dL] Trace mg/dL (11/24/21 3:54 PM) U Glucose [Normal mg/dL] >1000 mg/dL (11/24/21 3:54 PM) UA Ketones [Negative mg/dL] Negative mg/ dL (11/24/21 3:54 PM) U Bilirubin [Negative] Negative (11/24/21 3:54 PM) U Blood [Negative] Negative (11/24/21 3:54 PM) U Urobilinogen [0.2-1.0] Normal (11/24/21 3:54 PM) U Nitrite [Negative] Negative (11/24/21 3:54 PM) U Leukocyte Est [Negative] Negative (11/24/21 3:54 PM) U Squam Epi [0-4 /hpf] <1 /hpf (11/24/21 3:54 PM) U WBC [0-4 /hpf] <1 /hpf (11/24/21 3:54 PM) U RBC [0-4 /hpf] 2 /hpf (11/24/21 3:54 PM) U Mucous [None] Rare (11/24/21 3:54 PM) Reflex to Urine Culture [Not Indicated] Not Indicated (11/24/21 3:54 PM) Radiology Reports * Exam Date Time Procedure Performing Provider Status 11/24/21 3:15 PM RA Toe Great Left JENISE SHERMAN; Au th (Verified) Notes: (RA Toe Great Left) Reason For Exam: Pain Rad Report EXAM: RA TOE GREAT LEFT CLINICAL HISTORY: Pain COMPARISON: No comparisons TECHNIQUE: AP lateral and oblique projections. FINDINGS: There is diffuse osteopenia. There is an avulsion fracture at the medial base of the great toe. No advanced osteoarthritic changes are identified. The visualized bones of the midfoot are normally aligned. IMPRESSION: OSTEOPENIA. ACUTE AVULSION FRACTURE FROM THE MEDIAL BASE OF THE 1ST DISTAL PHALANX. Dictated at [facility] [id number] DOREEN WINKLER MD BOARD CERTIFIED RADIOLOGIST DIPLOMATE TURKMEN BOARD OF RADIOLOGY (Electronic Signature) Tech: JENISE SHERMAN Signed: 11/24/2021 16:05 FINAL Vital Signs Most recent to oldest [Reference Range]: 1 2 3 Temperature Oral [96.4-99.1 DegF] 98 DegF (11/24/21 2:21 PM) Heart Rate [60-100 bpm] 68 bpm (11/24/21 5:58 PM) 66 bpm (11/24/21 3:54 PM) 73 bpm (11/24/21 2:21 PM) Resp Rate Spontaneous [14-20 br/min] 18 br/min (11/24/21 5:58 PM) 18 br/min (11/24/21 3:54 PM) 18 br/min (11/24/21 2:21 PM) Blood Pressure [90-140/60-90 mmHg] 159/89mmHg *H* (11/24/21 5:58 PM) 153/80mmHg *H* (11/24/21 3:54 PM) 161/78mmHg *H* (11/24/21 2:21 PM) Mean Blood Pressure NIBP 112 mmHg (11/24/21 5:58 PM) 104 mmHg (11/24/21 3:54 PM) 105 mmHg (11/24/21 2:21 PM) NIBP Site Left arm (11/24/21 5:58 PM) Left arm (11/24/21 3:54 PM) Left arm (11/24/21 2:21 PM) Vital Signs Position Sitting (11/24/21 5:58 PM) Sitting (11/24/21 3:54 PM) Sitting (11/24/21 2:21 PM) Body Mass Index 28.8123 kg/m2 (11/24/21 2:21 PM) Social History Social History Type Response Smoking Status 10 or more cigarette s (1/2 pack or more)/day in last 30 days;Never entered on: 11/24/21 Sex 11 ppd since 31 years old Implantable Device List Procedure Provider Procedure Date Device Type Site IMPLANT RADIOACTIVE SEEDS Unknown 01/12/18 Unknown Prostate Device Identifier Serial Number Lot or Batch Number Manufacturing Date Expiration Date Distinct Identification Code MRI Safety Implantable Status Unknown N/A [id number] 01/12/18 02/05/18 Unknown Unknown Active Hospital Discharge Instructions Patient Education 11/24/2021 18:57:51 Open Toe Fracture (Child) Open Toe Fracture A toe fracture is a broken toe bone. With an open fracture, a broken bone is exposed??by a break inthe skin. Because of this, there is a risk of infection to the skin or bone. An open fracture will be painful, swollen, and bruised. It may also be bloody. To check the extent of the fracture, X-rays or other imaging tests are??often done. The bone may then be moved back into place. The skin wound may then be closed, possibly with stitches) or surgical??skin??glue.??To protect the injured toe and hold the bone in place while it heals, the injured toe may be taped to the toe??beside it. (This is called ???hanna taping.?? ) The child will likely be given a special shoe or boot to wear. If the toenail has been significantly injured, it may be surgically removed or allowed to fall off.??It often takes up to 12 months for a toenail to grow back. You likely will be asked about your child's vaccinations. He or she may need a tetanus shot if the wound is deep or dirty, or if your child's vaccine history is unclear. If the injury is severe enough, surgery may be needed. This is done by an orthopedic surgeon. This is a surgeon who specializes in treating bone, muscle, joint, and tendon problems. Home care ??? The doctor may prescribe an oral antibiotic to prevent infection. ??? Follow specific instructions given by your healthcare provider for the care of the injured toe and foot. ??? If you are given a special shoe or boot, use a shoe that protects the toe but does not put pressure on the injured toe. ??? Keep the foot raised (elevated) to reduce pain and swelling. This is most important during the first 48 hours after injury. ??? Apply a cold pack to the injury to??help??control??swelling. To make a cold pack, put ice cubesin a plastic bag that seals at the top. Wrap the bag in a clean, thin towel or cloth. As the ice melts, be careful that the shoe or boot, or any cloth or paper tape doesn???t get wet. Don't place thecold pack right on the skin, as this can cause damage. ??? Ice??the injured area for??up to??20 minutes every 1 to 2 hours the first day. Continue this 3 to 4 times a day for the next 2 days, then as needed.??It may help to make a game of using the ice.??However, if your child objects, don't force your child to use the ice. ??? Keep the shoe or boot dry. Unless told otherwise, it can be removed for bathing. Keep your child from sticking objects into the shoe or boot. ??? If hanna tape was applied and it becomes wet or dirty, change it. You can replace it with paper, plastic, or cloth tape. Cloth tape and paper tape must be kept dry. Keep the hanna tape in place,??as directed by the child's healthcare provider. Follow-up care Follow-up X-rays may be needed to see how the bone is healing. If your child was given a splint, itmay be changed to a cast at the follow-up visit. If you were referred to a specialist, make that appointment promptly. Special note to parents Healthcare providers are trained to recognize injuries like this one in young children as a sign ofpossible abuse. Several healthcare providers may ask questions about how your child was injured. Healthcare providers are required by law to ask you these questions. This is done for protection of the child. Please try to be patient and not take offense. When to get medical advice Call your child's healthcare provider if any of these occur: ??? Wet shoe or boot ??? Increasing swelling or pain?(nonverbal infants may indicate pain with crying that can't be soothed) ??? Injured toe, nearby toes, or the foot becomes cold, blue, numb,??burning,??or tingly ??? Redness, warmth, swelling, or drainage from the wound, or a bad odor from the shoe or boot ??? In infants, fussiness or crying that can't be soothed ??? Fever (see Fever and children, below) ??? Chills Call 911 Call 911 if your child has: ??? Trouble breathing ??? Confusion ??? Trouble awakening or is very drowsy ??? Fainting or loss of consciousness ??? Rapid heart rate ??? Seizure ??? Stiff neck Fever and children Use a digital thermometer to check your child???s temperature. Don???t use a mercury thermometer. There are different kinds and uses of digital thermometers. They include: ??? Rectal. For children younger than 3 years, a rectal temperature is the most accurate. ??? Forehead (temporal). This works for children age 3 months and older. If a child under 3 months old has signs of illness, this can be used for a first pass. The provider may want to confirm with arectal temperature. ??? Ear (tympanic). Ear temperatures are accurate after 6 months of age, but not before. ??? Armpit (axillary). This is the least reliable but may be used for a first pass to check a childof any age with signs of illness. The provider may want to confirm with a rectal temperature. ??? Mouth (oral). Don???t use a thermometer in your child???s mouth until he or she is at least 4 years old. Use the rectal thermometer with care. Follow the product maker???s directions for correct use. Insert it gently. Label it and make sure it???s not used in the mouth. It may pass on germs from the stool. If you don???t feel OK using a rectal thermometer, ask the healthcare provider what type to use instead. When you talk with any healthcare provider about your child???s fever, tell him or her which type you used. Below are guidelines to know if your young child has a fever. Your child???s healthcare provider may give you different numbers for your child. Follow your provider???s specific instructions. Fever readings for a baby under 3 months old: ??? First, ask your child???s healthcare provider how you should take the temperature. ??? Rectal or forehead: 100.4??F (38??C) or higher ??? Armpit: 99??F (37.2??C) or higher Fever readings for a child age 3 months to 36 months (3 years): ??? Rectal, forehead, or ear: 102??F (38.9??C) or higher ??? Armpit: 101??F (38.3??C) or higher Call the healthcare provider in these cases: ??? Repeated temperature of 104??F (40??C) or higher in a child of any age ??? Fever of 100.4??F (38??C) or higher in baby younger than 3 months ??? Fever that lasts more than 24 hours in a child under age 2 ??? Fever that lasts for 3 days in a child age 2 or older ?? [id number] [employer] [address] [place] [address], [place] [address]. All rights reserved. This information is not intended as a substitute for professional medical care. Always follow your healthcare professional's instructions. 11/24/2021 18:57:51 Laceration, Foot: All Closures Foot Laceration: All Closures A laceration??is a cut through the skin. Deep cuts may require stitches. Minor cuts may be treated with surgical tape closures or skin??glue. X-rays may be done if something may have entered the skin through the cut, such as glass or rocks. You may also need a tetanus shot if you are not up to date on this vaccination and the object that caused the cut may lead to tetanus. Home care ??? Your healthcare provider may prescribe an antibiotic. This is to help prevent infection. Followall instructions for taking this medicine. Take the medicine every day until it is gone or you are told to stop. You should not have any left over. ??? The healthcare provider may prescribe medicines for pain. Follow instructions for taking them. ??? Follow the healthcare provider???s instructions on how to care for the cut. ??? You may be given instructions for keeping weight off of the area to allow the injury to heal. ??? Follow the healthcare provider???s instructions on how to care for the cut. ??? Keep the wound clean and dry. Don't get the wound wet until you are told it is OK to do so.??Ifthe area gets wet, gently pat it dry with a clean cloth. Replace the wet bandage with a dry one. ??? To help prevent infection, wash your hands with soap and water before and after caring for the wound. ??? Caring for stitches:??Once you no longer need to keep the stitches dry, clean the wound daily. First, remove the bandage. Then wash the area gently with soap and warm water, or as directed by the??healthcare provider. Use a wet cotton swab to loosen and remove any blood or crust that forms. After cleaning, apply a thin layer of antibiotic ointment if advised. Then put on a new bandage unless you are told not to. ??? Caring for skin glue:??Don???t put apply liquid, ointment, or cream on the wound while the glueis in place.??Avoid activities that cause heavy sweating. Protect the wound from sunlight.??Don't scratch, rub, or pick at the adhesive film. Don't place tape directly over the film.??The glue shouldpeel off within 5 to 10 days. ??? Caring for surgical tape:??Keep the area dry. If it gets wet, blot it dry with a clean towel. Surgical tape usually falls off within 7 to 10 days. If it has not fallen off after 10 days, you can take it off yourself. Put mineral oil or petroleum jelly on a cotton ball and gently rub the tape until it is removed. ??? Once you can get the wound wet, you may shower as usual, but don't soak the wound in water. This means no tub baths or swimming. ??? Even with proper treatment, a wound infection may sometimes occur. Check the wound daily for signs of infection listed below. Follow-up care Follow up with your healthcare provider, or as advised. Return to have stitches removed as directed. When to seek medical advice Call your healthcare provider right away??if any of these occur: ??? Wound bleeding not controlled by direct pressure ??? Signs of infection, including increasing pain in the wound, increasing wound redness or swelling, or pus or bad odor coming from the wound ??? Fever of??100.4??F (38.??C)??or higher, or as directed by your healthcare provider ??? Stitches come apart or fall out or surgical tape falls off before 7 days ??? Wound edges reopen ??? Wound changes colors ??? Numbness or weakness in the affected foot ??? Decreased movement of the foot ?? [id number] [employer] [address] [place] [address], [place] [address]. All rights reserved. This information is not intended as a substitute for professional medical care. Always follow your healthcare professional's instructions.
--- OUTSIDE RECORDS SUMMARY | 2023-04-18 08:58 | XMS_ITS | Continuity of Care Document ---
Author Name Unknown Organization [facility] Address [address] [place] [address]- Care Team Providers Care Relationship Associate Name Role Phone MARLEN BARNEY Primary Care Physician Encounter [facility] [place] [id number] Date(s): 11/24/21 - 11/24/21 [facility] [address] [place], [place] [address] Encounter Diagnosis Fracture of great toe, left, open(Discharge Diagnosis) - 11/24/21 Avulsion fracture(Discharge Diagnosis) - 11/24/21 Diabetic neuropathy(Discharge Diagnosis) - 11/24/21 Laceration of nail bed of toe(Discharge Diagnosis) - 11/24/21 Discharge Disposition: HR Attending Physician: YESICA ANGELES DO Admitting Physician: YESICA ANGELES DO Allergies, Adverse Reactions, Alerts No Known Allergies Assessment and Plan Extracted from: Title:Toe injury - Major Author:EUFEMIA ANGELES DO Date:11/24/21 Impression and Plan Diagnosis Fracture of great toe, left, open (AVV98-AA S92.402B, Discharge, Medical) Laceration of nail bed of toe (IUM53-AK S91.219A, Discharge, Medical) Diabetic neuropathy (DFM65-TY E11.40, Discharge, Medical) Avulsion fracture (BNP75-CI T14.8XXA, Discharge, Medical) Plan Condition: Stable. Disposition: [...] PO, Daily, # 30 tab, 0 Refill(s), [facility] #[id number], 172.72, cm, 10/14/20 9:56:00 EST, CLINICALHEIGHT, 91.364, kg, 10/14/20 9:56:00 EST, CLINICALWEIGHT Start Date: 10/14/20 Stop Date: 11/13/20 Status: Ordered cephalexin (Eqv-Keflex) 500 mg oral capsule 500 mg = 1 cap, PO, four times a day, X 5 day(s), # 20 cap, 0 Refill(s), [facility] #[id number], 175.26, cm, 11/24/21 14:21:00 EDT, CLINICALHEIGHT, 88.5, kg, 11/24/21 14:21:00 EDT, CLINICALWEIGHT Start Date: 11/24/21 Stop Date: 11/29/21 Status: Ordered gabapentin 600 mg oral tablet [...] PO, Daily, # 60 tab, 0 Refill(s), [facility] #[id number], 172.72, cm, 10/14/20 9:56:00 EST, CLINICALHEIGHT, 91.364, kg, 10/14/20 9:56:00 EST, CLINICALWEIGHT Start Date: 10/14/20 Stop Date: 11/13/20 Status: Ordered metFORMIN 850 mg oral tablet 850 mg = 1 tab, PO, BID, # 60 tab, 0 Refill(s), [facility] #[id number], 172.72, cm, 10/14/20 9:56:00 EST, CLINICALHEIGHT, 91.364, [...] >60 mL/min/1.73m2 (11/24/21 2:47 PM) eGFR( NonAfrican Surinamese) [>=60 mL/min/ 1.73m2] >60 mL/min/1.73m2 (11/24/21 2:47 [...] [20.0-45.0 %] 27.1 % (11/24/21 2:47 PM) [place] % [1.0-13.0 %] 7.3 % (11/24/21 2:47 PM) Eos % [0.0-6.0 %] 2.5 % (11/24/21 2:47 PM) Baso % [0.0-2.0 %] 1.1 % (11/24/21 2:47 PM) Neut Abs [1.80-7.70 _X10^3/uL] 5.43 _X10 ^3/uL (11/24/21 2:47 PM) Lymph Abs [1.00-4.80 _X10^3/uL] 2.39 _X1 0^3/uL (11/24/21 2:47 PM) [place] Abs [0.10-1.00 _X10^3/uL] 0.64 _X10 ^3/uL (11/24/21 [...] OF THE 1ST DISTAL PHALANX. Dictated at [facility] [address] DOREEN WINKLER MD BOARD CERTIFIED RADIOLOGIST DIPLOMATE TUNISIAN BOARD OF RADIOLOGY (Electronic Signature) Tech: JENISE SEHRMAN Signed: 11/24/2021 16:05 FINAL Vital Signs Most [...] a child age 2 or older ?? [id number] [employer]. [address] [place] [address]. All rights reserved. This information is not [...] ??? Decreased movement of the foot ?? [id number] [employer]. [address] [place] [address], [place] [address]. All rights reserved. This information is not intended as a substitute for professional medical care. Always follow your healthcare professional's instructions.
--- OUTSIDE RECORDS SUMMARY | 2023-04-18 08:58 | XMS_ITS | Referral Summary ---
Author Name Unknown Organization [facility] Address [address] [place] [address]- Care Team Providers Care Sales Assistants And Salespersons Name Role Phone MARLEN BARNEY Primary Care Physician Encounter [facility] [place] [id number] Date(s): 09/28/19 - 09/28/19 [facility] [address] [place] [address]- [facility] Discharge Disposition: HR Attending Physician: CARLOS A RUSSELL DO Admitting Physician: CARLOS A RUSSELL DO Vital Signs Most recent to oldest [Reference Range]: 1 2 3 Temperature Oral [96.4-99.1 DegF] 97.1 DegF (09/28/19 7:00 PM) 97.5 DegF (09/28/19 4:49 PM) Heart Rate [60-100 bpm] 70 bpm (09/28/19 7:34 PM) 62 bpm (09/28/19 7:00 PM) 61 bpm (09/28/19 4:49 PM) HR/Rhythm Regular (09/28/19 7:34 PM) Regular (09/28/19 4:49 PM) Resp Rate Spontaneous [14-20 br/min] 17 br/min (09/28/19 7:34 PM) 18 br/min (09/28/19 7:00 PM) 19 br/min (09/28/19 4:49 PM) Blood Pressure [90-140/60-90 mmHg] 143/66mmHg *H* (09/28/19 7:34 PM) 144/73mmHg *H* (09/28/19 7:00 PM) 151/78mmHg *H* (09/28/19 4:49 PM) NIBP Site Left arm (09/28/19 7:34 PM) Left arm (09/28/19 4:49 PM) Vital Signs Position Lying (09/28/19 7:34 PM) Lying (09/28/19 7:00 PM) Sitting (09/28/19 4:49 PM) Body Mass Index 26.6369 kg/m2 (09/28/19 4:49 PM) Problem List Condition Effective Dates Status Health Status Inform ant Diabetes mellitus(Confirmed) Active Hard of hearing(Confirmed) Active Kidney stone(Confirmed) 1 Active Neuropathy(Confirmed) Active Prostate cancer(Confirmed) Active 1none since 2016 Allergies, Adverse Reactions, Alerts No Known Allergies Medications gabapentin 600 mg oral tablet 600 mg = 1 tab, PO, Daily, 600mg am 1200mg pm, 0 Refill(s) Start Date: 01/12/18 Status: Ordered glipiZIDE 5 mg oral tablet 5 mg = 1 tab, PO, Daily, 0 Refill(s) Start Date: 07/06/17 Status: Ordered temazepam 15 mg =, PO, HS, 0 Refill(s) Start Date: 07/06/17 Status: Ordered Results Most recent to oldest [Reference Range]: 1 eGFR () [>=60 mL/min/1.7 3m2] >60 mL/min/1.73m2 (09/28/19 5:56 PM) eGFR( NonAfrican [place]an) [>=60 mL/min/ 1.73m2] >60 mL/min/1.73m2 (09/28/19 5:56 PM) IG% [0.0-1.0 %] 0.3 % (09/28/19 5:56 PM) IG Abs [0.00-0.11 _X10^3/uL] 0.03 _X10^3 /uL (09/28/19 5:56 PM) Hemolysis None (09/28/19 5:56 PM) POC Bed Glucose [70-110 mg/dL] 217 mg/dL *H* (09/28/19 5:02 PM) Glucose Lvl [80-115 mg/dL] 237 mg/dL *H* (09/28/19 5:56 PM) BUN [8-26 mg/dL] 17 mg/dL (09/28/19 5:56 PM) Creatinine [0.8-1.2 mg/dL] 1.1 mg/dL (09/28/19 5:56 PM) Sodium Lvl [136-145 mmol/L] 139 mmol/L (09/28/19 5:56 PM) Potassium Lvl [3.5-5.1 mmol/L] 4.0 mmol/ L (09/28/19 5:56 PM) Chloride [98-107 mmol/L] 105 mmol/L (09/28/19 5:56 PM) CO2 [23-31 mmol/L] 26 mmol/L (09/28/19 5:56 PM) Anion Gap [5-14] 8 (09/28/19 5:56 PM) Calcium Lvl [8.8-10.0 mg/dL] 8.7 mg/dL *L* (09/28/19 5:56 PM) Total Protein [6.2-8.1 g/dL] 6.9 g/dL (09/28/19 5:56 PM) Albumin Lvl [3.4-4.8 g/dL] 3.6 g/dL (09/28/19 5:56 PM) A/G Ratio [1.0-2.0] 1.1 (09/28/19 5:56 PM) Alk Phos [40-150 units/L] 87 units/L (09/28/19 5:56 PM) AST [5-34 units/L] 10 units/L (09/28/19 5:56 PM) ALT [0-55 units/L] 15 units/L (09/28/19 5:56 PM) Bili Total [0.2-1.2 mg/dL] 0.5 mg/dL (09/28/19 5:56 PM) WBC [4.00-11.00 _X10^3/uL] 8.76 _X10^3/u L (09/28/19 5:56 PM) RBC [4.30-5.80 _X10^6/uL] 6.03 _X10^6/uL *H* (09/28/19 5:56 PM) Hemoglobin [13.0-17.3 g/dL] 17.6 g/dL *H* (09/28/19 5:56 PM) Hematocrit [38.0-52.0 %] 52.1 % *H* (09/28/19 5:56 PM) MCV [78.0-100.0 fl] 86.4 fl (09/28/19 5:56 PM) MCH [26.0-34.0 pg] 29.2 pg (09/28/19 5:56 PM) MCHC [31.0-37.0 g/dL] 33.8 g/dL (09/28/19 5:56 PM) Platelet [140-400 _X10^3/uL] 177 _X10^3/ uL (09/28/19 5:56 PM) MPV [9.4-12.4 fl] 10.7 fl (09/28/19 5:56 PM) RDW [10.8-14.2 %] 14.3 % *H* (09/28/19 5:56 PM) Neut % [37.0-80.0 %] 61.3 % (09/28/19 5:56 PM) Lymph % [20.0-45.0 %] 26.5 % (09/28/19 5:56 PM) [place] % [1.0-13.0 %] 8.6 % (09/28/19 5:56 PM) Eos % [0.0-6.0 %] 2.3 % (09/28/19 5:56 PM) Baso % [0.0-2.0 %] 1.0 % (09/28/19 5:56 PM) Neut Abs [1.80-7.70 _X10^3/uL] 5.37 _X10 ^3/uL (09/28/19 5:56 PM) Lymph Abs [1.00-4.80 _X10^3/uL] 2.32 _X1 0^3/uL (09/28/19 5:56 PM) [place] Abs [0.10-1.00 _X10^3/uL] 0.75 _X10 ^3/uL (09/28/19 5:56 PM) Eos Abs [0.00-0.70 _X10^3/uL] 0.20 _X10^ 3/uL (09/28/19 5:56 PM) Baso Abs [0.00-0.30 _X10^3/uL] 0.09 _X10 ^3/uL (09/28/19 5:56 PM) PT [12.0-14.4 sec(s)] 12.2 sec(s) (09/28/19 5:56 PM) PT INR 0.9 *NA* (09/28/19 5:56 PM) PTT [24.6-35.3 sec(s)] 28.9 sec(s) (09/28/19 5:56 PM) U Color Yellow (09/28/19 7:08 PM) U Appearance Clear (09/28/19 7:08 PM) U Sp Gravity_ [1.015-1.030] 1.020 (09/28/19 7:08 PM) U pH [5.0-7.5] 6.0 (09/28/19 7:08 PM) U Protein [Negative mg/dL] Negative mg/d L (09/28/19 7:08 PM) U Glucose [Negative mg/dL] >=1000 mg/dL (09/28/19 7:08 PM) UA Ketones [Negative mg/dL] Negative mg/ dL (09/28/19 7:08 PM) U Bilirubin [Negative] Negative (09/28/19 7:08 PM) U Blood [Negative] Negative (09/28/19 7:08 PM) U Urobilinogen [0.2-1.0 EU/dL] 1.0 EU/dL (09/28/19 7:08 PM) U Nitrite [Negative] Negative (09/28/19 7:08 PM) U Leukocyte Est [Negative] Negative (09/28/19 7:08 PM) U Microscopic No *NA* (09/28/19 7:08 PM) Procedures Procedure Date Related Diagnosis Body Site Status CYSTOSCOPY 1 01/12/18 Completed IMPLANT RADIOACTIVE SEEDS 2 01/12/18 Completed Seed implantation into prostate 01/12/18 Completed HERNIORRHAPHY INGUINAL (Right) 3 07/06/17 Completed Ankle 4 Completed Kidney stone Completed 1auto-populated from documented surgical case 2auto-populated from documented surgical case 3auto-populated from documented surgical case 4left ankle surgeries after fall from 3rd story roof Social History Social History Type Response Substance Use Never Tobacco 10 or more cigarette s (1/2 pack or more)/day in last 30 days Smoking Tobacco Use. Never Smokeless tobacco use:. Cigarettes Smoking Status Never entered on: 09/28/19 Functional Status FUNCTIONAL 09/28/19 Assistive Device None COGNITIVE 09/28/19 Level of Consciousness Awake Orientation Forgetful Affect Appropriate Assessment and Plan Extracted from: Title:Multiple falls Author:CARLOS A RUSSELL DO Date :09/28/19 Impression and Plan Diagnosis Post concussive syndrome 2. Subacute head injury 3. Hyperglycemia Plan Condition: Stable. Disposition: Discharged: to home. Patient was given the following educational materials: Post CONCUSSIVE (no wake- up) (Custom). Follow up with: Follow up with primary care provider In 1 day 09/29/2019; Return to Emergency Department , only if needed. Counseled: Patient, Family, Regarding diagnosis, Regarding diagnostic results, Regarding treatment plan, Regarding prescription, Patient indicated understanding of instructions. Hospital Discharge Instructions Patient Education Post CONCUSSIVE (no wake-up) (Custom) Follow Up Care 09/28/2019 16:38:13 With:Return to Emergency Department Address:Unknown When:only if needed With:Follow up with primary care provider Address:Unknown When:09/29/2019 20:27:17
--- OUTSIDE RECORDS SUMMARY | 2023-04-18 08:58 | XMS_ITS | Referral Summary ---
Author Name Unknown Organization [facility] Address [address] [place] [address]- Care Team Providers Care Prekindergarten Teacher Name Role Phone MARLEN BANREY Primary Care Physician Encounter [facility] [place] [id number] Date(s): 09/28/19 - 09/28/19 [facility] [address] [place], [place] [address] Encounter Diagnosis Fall on same level, unspecified, initial encounter(Final) - 09/28/[address] in unspecified non-institutional (private) residence as the place of occurrence of the external cause(Final) - 09/28/19 Other retirement (current) drug therapy(Final) - 09/28/19 Headache(Final) - 09/28/19 Postconcussional syndrome(Final) - 09/28/19 Other specified injuries of head, initial encounter(Final) - 09/28/19 Hyperglycemia, unspecified(Final) - 09/28/19 Discharge Disposition: HR Attending Physician: CARLOS A [...] >60 mL/min/1.73m2 (09/28/19 5:56 PM) eGFR( NonAfrican Austrian) [>=60 mL/min/ 1.73m2] >60 mL/min/1.73m2 (09/28/19 5:56 [...] [20.0-45.0 %] 26.5 % (09/28/19 5:56 PM) [place] % [1.0-13.0 %] 8.6 % (09/28/19 5:56 PM) Eos % [0.0-6.0 %] 2.3 % (09/28/19 5:56 PM) Baso % [0.0-2.0 %] 1.0 % (09/28/19 5:56 PM) Neut Abs [1.80-7.70 _X10^3/uL] 5.37 _X10 ^3/uL (09/28/19 5:56 PM) Lymph Abs [1.00-4.80 _X10^3/uL] 2.32 _X1 0^3/uL (09/28/19 5:56 PM) [place] Abs [0.10-1.00 _X10^3/uL] 0.75 _X10 ^3/uL (09/28/19 [...]
[2023-04-18 09:14] VITALS: PULSE 68; O2SAT 100
[2023-04-18 10:19] VITALS: BP 129/72; TEMP 36.6
--- NOTE | 2023-04-18 15:13 | ED.GENADUL_ITS ---
Discharge Plan Disposition Patient Disposition: Home Discharge Details Clinical Impression: Encounter for wound care Primary Care Provider: Tracie,Local ED Provider: Tessa Rodriguez Home Meds and New Rx's Prescriptions: Continued metformin 1,000 mg Tablet 1,000 mg PO BID glipizide 10 mg Tablet 10 mg PO BID lisinopril 5 mg Tablet 5 mg PO DAILY aspirin 81 mg Capsule 81 mg PO DAILY gabapentin 600 mg Tablet 600 mg PO TID temazepam 30 mg Capsule 30 mg PO QHS PRN atorvastatin 20 mg Tablet 20 mg PO DAILY Jardiance 10 mg Tablet 10 mg PO DAILY Discharge Instructions Additional Instructions: Please follow-up with the home health team and be sure that you have your wound reassessed and cared for, change dressings as they become saturated Return with spreading redness, fever, worsening pain Medical Decision Making Patient is alert and at his reported baseline, he has 1/5 toe amputation with large wound site, no lymphangitis, no cellulitis, no purulent drainage, serosanguineous drainage noted Wound VAC removed by me without incident, wound cleansed and wet-to-dry dressing applied, has appointments with home health set up for tomorrow Return precautions reviewed and patient and expressed understanding HPI General Date/Time Provider Initiated Documentation: 04/18/23 08:53 . HPI Narrative: This 73-year-old gentleman presents for wound VAC removal and wound recheck after a toe amputation and currently undergoing treatment for osteomyelitis stone and CMC. He has visiting nurses going out to his house tomorrow for reassessment, they are asking for a wet-to-dry dressing and wound VAC removal, patient does not endorse any confusion, weakness, pain, fever, or any additional complaints this time. Related Data Home Medications Medication Instructions Recorded Confirmed aspirin 81 mg capsule 81 mg PO DAILY 06/06/22 06/06/22 atorvastatin 20 mg tablet 20 mg PO DAILY 06/06/22 06/06/22 empagliflozin 10 mg tablet 10 mg PO DAILY 06/06/22 03/23/23 (Jardiance) gabapentin 600 mg tablet 600 mg PO TID 06/06/22 03/23/23 glipizide 10 mg tablet 10 mg PO BID 06/06/22 03/23/23 lisinopril 5 mg tablet 5 mg PO DAILY 06/06/22 03/23/23 metformin 1,000 mg tablet 1,000 mg PO BID 06/06/22 03/23/23 temazepam 30 mg capsule 30 mg PO QHS PRN 06/06/22 03/23/23 Allergies Allergy/AdvReac Type Severity Reaction Status Date / Time No Known Allergies Allergy Unverified 03/23/23 21:24 General Stated Complaint: GenMedical MO: 4 PFSH All Active Problems (Updated 04/18/23 @ 10:16 by ROSELINE Morataya) Encounter for wound care (Acute) Hyperlipidemia (Chronic) PVD (peripheral vascular disease) (Chronic) Cellulitis and abscess of foot (Acute) Osteomyelitis of great toe of left foot (Chronic) Medical History Diabetes Kidney stones Prostate cancer Surgical History History of hernia repair Social History Smoking/Tobacco Use Status: Current every day Tobacco Type: cigarettes Smoking risk assessment performed?: Yes Alcohol Intake: current Substance use type: does not use Housing: house Do you feel safe at home: Yes Do you feel safe in your relationship?: Yes Course Vital Signs Vital signs: Vital Signs Respiratory Rate 16 04/18/23 08:57 Blood Pressure 100/42 L 04/18/23 08:57 Temperature 36.6 C 04/18/23 10:19 Pulse 68 04/18/23 09:14 Respiratory Rate 16 04/18/23 08:57 Respiratory Effort Normal, Non-Labored 04/18/23 10:19 Respiratory Depth Normal 04/18/23 10:19 Respiratory Pattern Normal 04/18/23 10:19 Blood Pressure 129/72 04/18/23 10:19 Blood Pressure Position Sitting 04/18/23 08:57 Pulse Oximetry 100 04/18/23 09:14
--- NOTE | 2023-04-19 07:24 | NUR.NOTE ---
Addendum entered by Asha Tanner 06/01/23 07:25: [facility] requested the note again. Original Note: Accessed patient chart to print provider note to be faxed to [facility] for billing purposes.Nursing Note:
== END 2023-04-18 10:43 | disposition home or self-care (01) ==
PROVIDERS: Emergency Provider Physician Assistant
DX: M86.9 Osteomyelitis, unspecified; E11.69 Type 2 diabetes mellitus with other specified complication; T87.89 Other complications of amputation stump
CPT/HCPCS: 99282; 99283